=== PATIENT | male | born 1965 | race Caucasian/White ===

== ENCOUNTER 2017-04-27 03:42 | Inpatient (IN) | payer MEDICAID, OTHER ==
[~2017-04-27] VITALS: Ht 165.1 cm; Wt 88.8 kg
[2017-04-27] MEDS ORDERED: ADENOSINE 6 MG/2 ML INJ IV ONE ×6 (03:56→04:01)
[2017-04-27 04:23] LABS: Basophils # (auto) 0.1 uL; Eosinophils # (auto) 0.2 uL; Neutrophils % (auto) 54.9 % (37.0-80.0)
[2017-04-27 04:25] LABS: Basophils % (auto) 0.8 % (0.0-2.0); Eosinophils % (auto) 3.1 % (0.0-7.0); Hematocrit 49.5 % (41.0-53.0); Hemoglobin 17.2 g/dL (13.5-17.5); Mean Corpuscular Hemoglobin 34.6 pg (28.0-32.0); Mean Corpuscular Hgb Conc. 34.8 g/dL (32.0-36.0); Mean Corpuscular Volume 99.4 fL (80.0-100.0); Monocytes # (auto) 0.8 uL; Monocytes % (auto) 11.2 % (0.0-12.0); Neutrophils # (auto) 3.7 uL; Nucleated Red Blood Cells % 0.1 %; Platelet Count (auto) 218 10^3/uL (140-450); Red Blood Cells 4.98 10^6/uL (4.5-5.90); White Blood Cell 6.8 10^3/uL (4.4-10.8)
[2017-04-27 04:36] LABS: INR 0.93 (0.9-1.15); Partial Thromboplastin Time 26.6 sec (22.64-33.71); Prothrombin Time 10.1 sec (9.37-12.3)
[2017-04-27 04:37] LABS: Alanine Aminotransferase 131 U/L (16-61); Albumin 3.9 g/dL (3.4-5.0); Anion Gap 9 (5-15); Aspartate Aminotransferase 135 U/L (15-37); BUN/Creatinine Ratio 13.3; Blood Urea Nitrogen 10 mg/dL (7-18); Calcium 9.5 mg/dL (8.5-10.1); Carbon Dioxide 29 mmol/L (21-32); Chloride 102 mmol/L (98-107); GFR African American 142 mL/min; GFR Non-African American 118 mL/min; Glucose 119 mg/dL (74-106); Sodium 140 mmol/L (136-145)
[2017-04-27 04:41] LABS: Alkaline Phosphatase 98 U/L (45-117); Bilirubin, Total 0.8 mg/dL (0.2-1.0); Total Protein 8.7 g/dL (6.4-8.2)
[2017-04-27] MEDS ORDERED: SODIUM CHLORIDE 0.9% 1,000 ML IVB ONE (06:53)
[2017-04-27 07:00] LABS: Urine Bacteria NONE SEEN /hpf (None Seen); Urine Blood Negative /uL (Negative); Urine Hyaline Cast FEW /lpf (0 - 2); Urine Specific Gravity 1.008 (1.001-1.035); Urine WBC 1 /hpf (0 - 3)
[2017-04-27] MEDS ORDERED: DILTIAZEM HCL 120MG ER CAP PO ONE (07:00)
[2017-04-27 07:11] LABS: Amphetamine Screen, Urine NEGATIVE (NEGATIVE); Barbiturate Scree,Urine NEGATIVE (NEGATIVE); Benzodiazephine Screen, Urine NEGATIVE (NEGATIVE); Cannabinoid Screen, Urine NEGATIVE (NEGATIVE); Cocaine Screen, Urine NEGATIVE (NEGATIVE); Opiate Scree,Urine NEGATIVE (NEGATIVE); Phencyclidine Screen, Urine NEGATIVE (NEGATIVE)
[2017-04-27] MEDS ORDERED: METOPROLOL TARTRATE 1MG/1ML-5ML VIAL IV ONE (10:45)
[2017-04-27] MEDS ORDERED: LACTULOSE 20Gm/30ML SOLN PO PRN (11:00)
[2017-04-27] MEDS ORDERED: LORazepam 2MG/ML-1ML VIAL IV PRN (11:00)
[2017-04-27] MEDS ORDERED: chlordiazePOXIDE HCL 25 MG CAP PO PRN (11:00)
[2017-04-27] MEDS ORDERED: THIAMINE HCL 100 MG/ML 2ML VIAL IV ONE (11:00)
[2017-04-27] MEDS ORDERED: PROMETHAZINE HCL 25 MG/ML 1ML IV PRN (11:00)
[2017-04-27] MEDS ORDERED: MORPHINE SULFATE 4 MG/ML SYR/VIAL IV PRN ×3 (11:00)
[2017-04-27] MEDS ORDERED: NITROGLYCERIN 0.4 MG SL TAB SL PRN (11:00)
[2017-04-27] MEDS ORDERED: METOPROLOL TARTRATE 25 MG TAB PO ONE (11:15)
[2017-04-27] MEDS ORDERED: PERMETHRIN 5 % TOPICAL CREAM 60GM TOP ONE (11:15)
[2017-04-27] MEDS ORDERED: chlordiazePOXIDE HCL 25 MG CAP PO ONE (11:15)
[2017-04-27] MEDS: chlordiazePOXIDE HCL 5 MG CAP PO SCH ×2 (12:00→18:00)
[2017-04-27] MEDS: SODIUM CHLORIDE 0.9% 1,000 ML IV SCH (12:23)
[2017-04-27] MEDS: METOPROLOL TARTRATE 25 MG TAB PO SCH (22:29)
[2017-04-28] MEDS: SODIUM CHLORIDE 0.9% 1,000 ML IV SCH (00:07)
[2017-04-28] MEDS: chlordiazePOXIDE HCL 5 MG CAP PO SCH ×4 (00:28→18:22)
[2017-04-28 06:04] LABS: Alanine Aminotransferase 90 U/L (16-61); Albumin 3.2 g/dL (3.4-5.0); Anion Gap 7 (5-15); Aspartate Aminotransferase 74 U/L (15-37); BUN/Creatinine Ratio 21.2; Blood Urea Nitrogen 11 mg/dL (7-18); Calcium 8.5 mg/dL (8.5-10.1); Carbon Dioxide 28 mmol/L (21-32); Chloride 104 mmol/L (98-107); GFR African American 217 mL/min; GFR Non-African American 180 mL/min; Glucose 94 mg/dL (74-106); Potassium 3.6 mmol/L (3.5-5.1); Sodium 139 mmol/L (136-145)
[2017-04-28 06:08] LABS: Alkaline Phosphatase 71 U/L (45-117); Bilirubin, Total 0.8 mg/dL (0.2-1.0); Total Protein 7.4 g/dL (6.4-8.2)
[2017-04-28 09:19] LABS: Hepatitis B Surface Antibody Negative
[2017-04-28 09:30] LABS: Hepatitis B Surface Antigen Negative (Negative)
[2017-04-28] MEDS ORDERED: cloNIDine HCL 0.1 MG TAB PO ONE (09:30)
[2017-04-28 09:58] LABS: Hepatitis A Total Antibody Negative; Hepatitis B Core Total AB Negative
[2017-04-28] MEDS: THIAMINE HCL 100 MG/ML 2ML VIAL IV SCH (10:00)
[2017-04-28 10:20] LABS: Hepatitis C Antibody Positive (Negative)
[2017-04-28] MEDS: PANTOPRAZOLE 40 MG TAB PO SCH (10:22)
[2017-04-28] MEDS: METOPROLOL TARTRATE 25 MG TAB PO SCH ×4 (10:22→23:28)
[2017-04-28] MEDS: ENOXAPARIN SOD 40 MG/0.4 ML SYRINGE SC SCH (10:23)
[2017-04-29] MEDS: METOPROLOL TARTRATE 25 MG TAB PO SCH ×2 (00:01→00:02)
[2017-04-29] MEDS: chlordiazePOXIDE HCL 5 MG CAP PO SCH ×5 (00:07→23:47)
[2017-04-29 06:15] LABS: Albumin 3.2 g/dL (3.4-5.0); Magnesium 1.8 mg/dL (1.6-2.6)
[2017-04-29 06:18] LABS: Bilirubin, Total 0.8 mg/dL (0.2-1.0); Total Protein 7.5 g/dL (6.4-8.2)
[2017-04-29] MEDS ORDERED: PERMETHRIN 5 % TOPICAL CREAM 60GM TOP ONE ×2 (08:15→17:30)
[2017-04-29 08:56] LABS: Alcohol, Urine < 3.0 mg/dL (0-5); Amphetamine Screen, Urine NEGATIVE (NEGATIVE); Barbiturate Scree,Urine NEGATIVE (NEGATIVE); Benzodiazephine Screen, Urine POSITIVE (NEGATIVE); Cannabinoid Screen, Urine NEGATIVE (NEGATIVE); Cocaine Screen, Urine NEGATIVE (NEGATIVE); Opiate Scree,Urine NEGATIVE (NEGATIVE); Phencyclidine Screen, Urine NEGATIVE (NEGATIVE)
[2017-04-29] MEDS: PANTOPRAZOLE 40 MG TAB PO SCH (10:28)
[2017-04-29] MEDS: ENOXAPARIN SOD 40 MG/0.4 ML SYRINGE SC SCH (10:29)
[2017-04-29] MEDS: THIAMINE HCL 100 MG/ML 2ML VIAL IV SCH (10:57)
[2017-04-29 13:25] LABS: Bilirubin, Direct 0.2 mg/dL (0-0.2)
[2017-04-29 13:42] LABS: Cholesterol 136 mg/dL (< 200); HDL Cholesterol 76 mg/dL (40-59); LDL Cholesterol 61 mg/dL (< 100); Triglycerides 63 mg/dL (< 150)
[2017-04-29] MEDS: THIAMINE HCL 100 MG TAB PO SCH (14:20)
[2017-04-29 18:01] VITALS: BP 119/111
[2017-04-29 22:00] VITALS: BP 124/78
[2017-04-30 05:00] VITALS: BP 124/89
[2017-04-30] MEDS: chlordiazePOXIDE HCL 5 MG CAP PO SCH ×2 (05:54→12:43)
[2017-04-30 07:31] LABS: Albumin 3.1 g/dL (3.4-5.0); Bilirubin, Direct 0.4 mg/dL (0-0.2); Bilirubin, Total 0.8 mg/dL (0.2-1.0); Total Protein 7.2 g/dL (6.4-8.2)
[2017-04-30 08:00] VITALS: BP 122/80
[2017-04-30 08:39] VITALS: BP 122/80
[2017-04-30] MEDS: PANTOPRAZOLE 40 MG TAB PO SCH (09:48)
[2017-04-30] MEDS: THIAMINE HCL 100 MG TAB PO SCH (09:49)
[2017-04-30] MEDS: METOPROLOL TARTRATE 25 MG TAB PO SCH (09:50)
[2017-04-30] MEDS: ENOXAPARIN SOD 40 MG/0.4 ML SYRINGE SC SCH (09:50)
[2017-04-30 11:55] VITALS: BP 107/58
[2017-04-30] MEDS ORDERED: MET25T PO (13:59)
[2017-04-30 14:31] VITALS: BP 107/58
[2017-04-30 14:56] VITALS: BP 107/58
== END 2017-04-30 14:56 | disposition home or self-care (01) | DRG 201 ==
LOC: ER 03:42 → TELE 03:43 → TELE-CENTR 04-29 11:21
PROVIDERS: ADMIT Internal Medicine; ATTEND Internal Medicine
DX: I47.1 Supraventricular tachycardia (principal); I11.9 Hypertensive heart disease without heart failure; I48.91 Unspecified atrial fibrillation; F10.239 Alcohol dependence with withdrawal, unspecified; B86 Scabies; B19.20 Unspecified viral hepatitis C without hepatic coma; F17.210 Nicotine dependence, cigarettes, uncomplicated; F15.90 Other stimulant use, unspecified, uncomplicated; Z59.0 Homelessness; M10.9 Gout, unspecified
CPT/HCPCS: 36415; 71046; 76705; 80053; 80061; 80076; 80307; 81001; 82550; 83735; 83880; 84443; 84484; 85025; 85379; 85610; 85652; 85730; 86141; 86704; 86706; 86708; 86803; 87340; 93005; 93306; 94761; 96361; 96374; J0153

== ENCOUNTER 2021-03-23 07:20 | Emergency (ER) | payer SELFPAY ==
[~2021-03-23] VITALS: Ht 320 cm; Wt 81.6 kg
[2021-03-23 07:29] VITALS: BP 175/111
== END 2021-03-23 14:03 | disposition home or self-care (01) ==
LOC: ER 07:20
DX: R00.2 Palpitations (principal); F17.210 Nicotine dependence, cigarettes, uncomplicated; F12.10 Cannabis abuse, uncomplicated; I48.91 Unspecified atrial fibrillation
CPT/HCPCS: 93005

== ENCOUNTER 2024-02-10 06:58 | Inpatient (IN) | payer MEDICAID ==
[2024-02-10] VITALS (9 sets, daily range): BP systolic 129–165; BP diastolic 85–104; PULSE 93–103; RESP 18–20; TEMP 96.4–98.5; O2SAT 93–97
[~2024-02-10] VITALS: Ht 167.6 cm; Wt 87.0 kg
--- NOTE | 2024-02-10 07:21 | ED.PDOC ---
SOB-HPI HPI Comments A 58 year old male presents to the ED with a chief complaint of shortness of breath onset today. Patient states he was walking to the bathroom when he suddenly began experiencing shortness of breath. Upon ED arrival, O2 sat was 87% on room air, blood pressure was 190/130. Patient was seen in this ED about 1 week ago for similar symptoms. He has a past medical history of Afib, gout. Denies chest pain, headache, dizziness, nausea, vomiting, diarrhea. No other symptoms or modifying factors present at this time. Chief Complaint: Shortness of Breath Time Seen by MD: 07:06 Primary Care Provider: TARA Reviewed notes: Medications, Allergies Information Source: Patient Mode of Arrival: Ambulatory Severity: Moderate Timing: Hours Duration: Since onset PE Risk Factors: None History of: None Prehospital treatment: None Associated Signs and Symptoms: None Past Medical History PAST MEDICAL HISTORY: AFIB, Gout Surgical History: Denies all surgeries Family History Family History: Unknown Social History Smoker: Cigarettes, Less Than 1 Pack/Day Alcohol: Heavy Drugs: Methamphetamine Lives In: Home Constitutional: denies: chills, diaphoresis, fatigue, fever, malaise, sweats, weakness, others EENTM: denies: blurred vision, double vision, ear bleeding, ear discharge, ear drainage, ear pain, ear ringing, eye pain, eye redness, hearing loss, mouth pain, mouth swelling, nasal discharge, nose bleeding, nose congestion, nose pain, photophobia, tearing, throat pain, throat swelling, voice changes, others Respiratory: reports: shortness of breath; denies: cough, hemoptysis, orthopnea, SOB at rest, SOB with excertion, stridor, wheezing, others Cardiovascular: denies: chest pain, dizzy spells, diaphoresis, Dyspnea on exertion, edema, irregular heart beat, left arm pain, lightheadedness, p alpitations, PND, syncope, others Gastrointestinal: denies: abdomen distended, abdominal pain, blood streaked bowels, constipated, diarrhea, dysphagia, difficulty swallowing, hematemesis, melena, nausea, poor appetite, poor fluid intake, rectal bleeding, rectal pain, vomiting, others Genitourinary: denies: burning, dysuria, flank pain, frequency, hematuria, incontinence, penile discharge, penile sore, pain, testicle pain, testicle swelling, urgency, others Neurological: denies: dizziness, fainting, headache, left sided numbness, left sided weakness, numbness, paresthesia, pre-existing deficit, right sided numbness, right sided weakness, seizure, speech problems, tingling, tremors, weakness, others Musculoskeletal: denies: back pain, gout, joint pain, joint swelling, muscle pain, muscle stiffness, neck pain, others Integumetry: denies: bruises, change in color, change in hair/nails, dryness, laceration, lesions, lumps, rash, wounds, others Allergic/Immunocompromised: denies: Difficulty Healing, Frequent Infections, Hives, Itching, others Hematologic/Lymphatic: denies: anemia, blood clots, easy bleeding, easy b ruising, swollen glands, others Endocrine: denies: excessive hunger, excessive sweating, excessive thirst, excessive urination, flushing, intolerance to cold, intolerance to heat, unexplained weight gain, unexplained weight loss, others Psychiatric: denies: anxiety, bipolar disorder, depression, hopeless, panic disorder, schizophrenia, sleepless, suicidal, others All Other Systems: Reviewed and Negative Physical Exam General Appearance: Cachectic, Moderate Distress HEENT: Normal ENT Inspection, Pharynx Normal, TMs Normal Neck: Full Range of Motion, Non-Tender, Normal, Normal Inspection Respiratory: Chest Non-Tender, Respiratory Distress, Other (hypoxic ) Cardiovascular: No Edema, No JVD, No Murmur, No Gallop, Tachycardia Breast Exam: Deferred Gastrointestinal: No Organomegaly, Non Tender, No Pulsatile Mass, Normal Bowel Sounds, Soft Genitalia: Deferred Pelvic: Deferred Rectal: Deferred Extremities: No calf tenderness, Normal capillary refill, Normal inspection, Normal range of motion, Non-tender, No pedal edema Musculoskeletal : Apperance: Normal Neurologic: Alert, tubular splitting machine tender II-XII nml as Tested, No Motor Deficits, Normal Affect, Normal Mood, No Sensory Deficits Cerebellar Function: Normal Reflexes: Normal Skin: Dry, Normal Color, Warm Lymphatic: No Adenopathy Was a procedure done? Was a procedure done?: No Differential Dx Differential Diagnosis: Bronchitis, CHF, COPD, Myocardial infarction, Pneumonia, URI X-Ray, Labs, Meds, VS Vital Signs Date Time Temp Pulse Resp B/P (MAP) Pulse Ox O2 Delivery O2 Flow Rate FiO2 02/10/24 10:00 90 16 138/95 (109) 97 02/10/24 08:00 103 20 94 Nasal Cannula* 2 28 02/10/24 07:27 134 97 143/84 (103) 33 02/10/24 07:27 28 99 Simple Mask* 8 60 02/10/24 07:20 131 02/10/24 07:05 94.0 133 28 199/130 (153) 86 Lab Test 02/10/24 11:33 02/10/24 09:06 02/10/24 08:12 02/10/24 07:12 Range/Units Troponin I High Sensitivity 40 32 28 </=54 ng/L White Blood Count 6.3 4.4-10.8 10^3/uL Red Blood Count 4.33 L 4.5-5.90 10^6/uL Hemoglobin 14.5 13.5-17.5 g/dL Hematocrit 43.3 41.0-53.0 % Mean Corpuscular Volume 100.0 80.0-100.0 fL Mean Corpuscular Hemoglobin 33.5 H 28.0-32.0 pg Mean Corpuscular Hemoglobin Concent 33.5 32.0-36.0 g/dL Red Cell Distribution Width 14.2 11.8-14.3 % Platelet Count 297 140-450 10^3/uL Mean Platelet Volume 7.4 6.9-10.8 fL Neutrophils (%) (Auto) 54.2 37.0-80.0 % Lymphocytes (%) (Auto) 25.2 10.0-50.0 % Monocytes (%) (Auto) 9.7 0.0-12.0 % Eosinophils (%) (Auto) 9.0 H 0.0-7.0 % Basophils (%) (Auto) 1.9 0.0-2.0 % Neutrophils # (Auto) 3.4 1.6-8.6 10 ^3/uL Lymphocytes # (Auto) 1.6 0.4-5.4 10 ^3/uL Monocytes # (Auto) 0.6 0-1.3 10 ^3/uL Eosinophils # (Auto) 0.6 0-0.8 10 ^3/uL Basophils # (Auto) 0.1 0-0.2 10 ^3/uL Nucleated Red Blood Cells 0.1 % Sodium Level 146 H 136-145 mmol/L Potassium Level 4.2 3.5-5.1 mmol/L Chloride Level 110 H 98-107 mmol/L Carbon Dioxide Level 27 20-31 mmol/L Anion Gap 9 5-15 Blood Urea Nitrogen 18 9-23 mg/dL Creatinine 0.90 0.700-1.30 mg/dL Glomerular Filtration Rate Calc 100 >90 mL/min BUN/Creatinine Ratio 20.0 10.0-20.0 Serum Glucose 123 H 74-106 mg/dL Calcium Level 9.4 8.7-10.4 mg/dL B-Type Natriuretic Peptide 441.99 0-100 pg/mL POC Glucose 130 H 70-106 mg/dl Current Medications Medications (Trade) Dose Ordered Sig/Jana Route Start Time Stop Time Status Last Admin Albuterol (Ventolin Medneb) 5 mg ONCE ONCE NEB 02/10/24 07:30 02/10/24 07:31 DC 02/10/24 07:24 Ipratropium [place] (Atrovent Medneb) 0.5 mg ONCE ONCE NEB 02/10/24 07:30 02/10/24 07:31 DC 02/10/24 07:24 Azithromycin (Zithromax Tablet) 500 mg ONCE ONCE PO 02/10/24 11:15 02/10/24 11:16 DC 02/10/24 11:31 Vancomycin HCl 200 ml @ 200 mls/hr ONCE ONCE IV 02/10/24 11:15 02/10/24 12:14 DC 02/10/24 11:31 [place] [address] Ph: [phone] DIAGNOSTIC IMAGING Diagnostic Imaging Report : [id number] Signed PATIENT: JASPREET VILLAVICENCIO ACCT: [id number] UNIT: [id number] : 1965 LOC: ER ROOM / BED: / AGE / SEX: 58 / M ADM STATUS: REG ER SERVICE ORDERING PHYSICIAN: WADE MONAHAN MD PROCEDURE(s): CXRP - CHEST PORTABLE REASON: sob ORDER NUMBER(s): [id number], ACCESSION NUMBER(s): [id number] CLINICAL INFORMATION: 58 years old, Male; shortness of breath. TECHNIQUE: Single AP portable chest radiograph was obtained. COMPARISON: None FINDINGS: Lungs: Ill-defined bilateral airspace opacities and moderate bilateral interstitial opacities. Cardiac: [id number] cardiomegaly. Pulmonary vasculature: Prominence of the pulmonary vasculature. Mediastinum/desiree: Unremarkable. Bones: No acute osseous abnormality identified. Other: No other significant findings. IMPRESSION: Findings described above may be seen with pulmonary edema in the appropriate clinical setting. Infectious/inflammatory process is less likely, but could also have a similar appearance in the appropriate clinical setting. ATED BY: LOUIS RENEE DO DICTATED DATE/TIME: 02/10/24755 SIGNED BY: LOUIS RENEE DO SIGNED DATE/TIME: 02/10/24755 CC: Time of 1ST Reevaluation: 07:36 Reevaluation 1ST: Unchanged Patient Education/Counseling: Diagnosis, Treatment, Prognosis Family Education/Counseling: No Family Present Additional Information HI DATA VOL/COMPLEXITY:>2 External Notes- Ordered Test- LAB, PHA, XY, EKG, RT Reviewed Results: BMP, CBC, BNP, TROP, TROP, TROP Independent Hx- no Interpreted Results-(XY/EKG) Discuss Tx/Results- medical personnel, pt Departure 1 Departure Time of Disposition: 12:17 (Patient presented with acute shortness of breath concerning for acute on chronic COPD Exacerbation, Pneumonia, ACS, CHF, Pneumothorax. Less likely PE, Dissection. Patient does not appear septic at this time.Data: 1. I ordered and reviewed the result of at least 3 labs including a CBC, BMP, and Troponin. 2. I independently interpreted the following tests: Chest X-ray shows a pneumonia.Risk:This patient has a high risk of morbidity due to further diagnostic testing or treatment and may suffer from respiratory or cardiac etiology . Workup reveals a pneumonia, patient will be started on antibiotics, admitted for further workup and possible expert consultation.) Impression: Primary Impression: Pneumonia Qualified Codes: J18.9 - Pneumonia, unspecified organism Additional Impression: Shortness of breath Disposition: ADMITTED INPATIENT Admit to: Med Surg Condition: Serious e-Prescriptions Unable to Obtain Active Prescriptions or Reported Meds Critical Care Note Critical Care Time?: No Stability Stability form required: No Heart Score Heart Score: Heart Score Response (Comments) Value History N/A 0 EKG N/A 0 Age N/A 0 Risk Factors N/A 0 Troponin N/A 0 Total 0 I personally scribed for WADE MONAHAN MD ([email or web address]) on 02/10/24 at 07:21. Electronically submitted by Мария Serrano ([email or web address]). I personally scribed for WADE MONAHAN MD ([email or web address]) on 02/10/24 at 08:03. Electronically submitted by Мария Serrano ([email or web address]). I personally scribed for WADE MONAHAN MD ([email or web address]) on 02/10/24 at 10:10. Electronically submitted by Мария Serrano ([email or web address]). I personally scribed for WADE MONAHAN MD ([email or web address]) on 02/10/24 at 10:42. Electronically submitted by Мария Serrano ([email or web address]). I personally scribed for WADE MONAHAN MD ([email or web address]) on 02/10/24 at 10:44. El ectronically submitted by Мария Serrano ([email or web address]). WADE MONAHAN MD Feb 10, 2024 07:21
[2024-02-10] MEDS: IPRATROPIUM BROM 0.5 MG/2.5ML INH SOL NEB ONE (07:24)
[2024-02-10] MEDS: ALBUTEROL SULF 2.5 MG/0.5ML(0.5%) NEB SOLN NEB ONE (07:24)
[2024-02-10] MEDS: ALBUTEROL SULF 2.5 MG/0.5ML(0.5%) NEB SOLN ONE (07:26)
[2024-02-10] MEDS: IPRATROPIUM BROM 0.5 MG/2.5ML INH SOL ONE (07:26)
--- NOTE | 2024-02-10 07:59 | DVH ---
CLINICAL INFORMATION: 58 years old, Male; shortness of breath. TECHNIQUE: Single AP portable chest radiograph was obtained. COMPARISON: None FINDINGS: Lungs: Ill-defined bilateral airspace opacities and moderate bilateral interstitial opacities. Cardiac: [id number] cardiomegaly. Pulmonary vasculature: Prominence of the pulmonary vasculature. Mediastinum/desiree: Unremarkable. Bones: No acute osseous abnormality identified. Other: No other significant findings. IMPRESSION: Findings described above may be seen with pulmonary edema in the appropriate clinical setting. Infect ious/inflammatory process is less likely, but could also have a similar appearance in the appropriate clinical setting.
[2024-02-10 08:35] LABS: Basophils # (auto) 0.1 10 ^3/uL (0-0.2); Basophils % (auto) 1.9 % (0.0-2.0); Eosinophils # (auto) 0.6 10 ^3/uL (0-0.8); Hematocrit 43.3 % (41.0-53.0); Hemoglobin 14.5 g/dL (13.5-17.5); Lymphocytes # (auto) 1.6 10 ^3/uL (0.4-5.4); Lymphocytes % (auto) 25.2 % (10.0-50.0); Mean Corpuscular Hemoglobin 33.5 pg (28.0-32.0); Mean Corpuscular Hgb Conc. 33.5 g/dL (32.0-36.0); Monocytes # (auto) 0.6 10 ^3/uL (0-1.3); Monocytes % (auto) 9.7 % (0.0-12.0); Neutrophils # (auto) 3.4 10 ^3/uL (1.6-8.6); Neutrophils % (auto) 54.2 % (37.0-80.0); Nucleated Red Blood Cells % 0.1 %; Platelet Count (auto) 297 10^3/uL (140-450); Red Blood Cells 4.33 10^6/uL (4.5-5.90); Red Cell Distribution Width 14.2 % (11.8-14.3); White Blood Cell 6.3 10^3/uL (4.4-10.8)
[2024-02-10 08:45] LABS: Potassium 4.2 mmol/L (3.5-5.1)
[2024-02-10 08:46] LABS: Anion Gap 9 (5-15); Carbon Dioxide 27 mmol/L (20-31)
[2024-02-10 08:47] LABS: Calcium 9.4 mg/dL (8.7-10.4)
[2024-02-10 08:48] LABS: Chloride 110 mmol/L (98-107); Sodium 146 mmol/L (136-145)
[2024-02-10 08:52] LABS: Blood Urea Nitrogen 18 mg/dL (9-23)
[2024-02-10 09:07] LABS: Glucose 123 mg/dL (74-106)
[2024-02-10] MEDS: VANCOMYCIN 1GM/250ML KIT 200 ML IV ONE ×2 (11:31→23:19)
[2024-02-10] MEDS: AZITHROMYCIN 250 MG TAB PO ONE (11:31)
[2024-02-10] MEDS: CEFEPIME 2GM/50ML NS 50 ML IV ONE (12:26)
[2024-02-10] MEDS ORDERED: ALBUTEROL SULF 2.5 MG/0.5ML(0.5%) NEB SOLN NEB PRN (12:45)
[2024-02-10] MEDS ORDERED: TEMAZEPAM 15 MG CAP PO PRN (12:45)
[2024-02-10] MEDS ORDERED: IPRATROPIUM BROM 0.5 MG/2.5ML INH SOL NEB PRN (12:45)
[2024-02-10] MEDS ORDERED: DEXTROSE (50%) 50ML SYRG IV PRN (12:45)
[2024-02-10] MEDS ORDERED: LORazepam 0.5 MG TAB PO PRN (12:45)
[2024-02-10] MEDS ORDERED: MAALOX PLUS or MAALOX 30 ML PO PRN (12:45)
[2024-02-10] MEDS ORDERED: DOCUSATE SOD 100 MG CAP PO PRN (12:45)
[2024-02-10] MEDS ORDERED: ONDANSETRON HCL 4 MG/2 ML VIAL IV PRN (12:45)
[2024-02-10] MEDS ORDERED: VANCOMYCIN PER PHARMACY 0 MG IV SCH (12:45)
[2024-02-10] MEDS ORDERED: ACETAMINOPHEN 325 MG TAB PO PRN (12:45)
--- NOTE | 2024-02-10 12:52 | DVHHP2 ---
History of Present Illness Reason for Visit: shortness of breath History of Present Illness 58-year-old obese male with a past medical history of AFib and gout comes to the ED for us evaluation and shortness of breath patient has been having shortness of breath with severe hypoxia stated for the past week patient does have a hi story of hypertension as well and on initial evaluation in the ED patient's blood pressure was as high as the 190s over 130s and was desaturating to the low levels of the 80s requiring patient to be put on O2 saturation for supplemental support patient is a pack a day smoker but no other stated history at this point in time patient seems to have AFib with RVR will be admitted for further evaluation and continued management Cardiovascular: HTN, aortic stenosis Pulmonary: Pneumonia Review of Systems Constitutional: No: Fever, Chills, Sweats, Weakness, Malaise, Other Eyes: No: Pain, Vision change, Conjunctivae inflammation, Eyelid inflammation, Other, Redness ENT: No: Ear pain, Ear discharge, Nose pain, Nose discharge, Nose congestion, Mouth pain, Mouth swelling, Throat pain, Throat swelling, Other Respiratory: Cough, Shortness of breath; No: Dry, SOB with excertion, Wheezing, Hemoptysis, Pleuritic Pain, Sputum, Wheezing, Other Cardiovascular: Chest Pain, Palpitations; No: Orthopnea, Paroxysmal Noc. Dyspnea, Edema, Lt Headedness, Other Gastrointestinal: No: Nausea, Vomiting, Abdominal Pain, Diarrhea, Constipation, Melena, Hematochezia, Other Genitourinary: No Dysuria, No Frequency, No Incontinence, No Hematuria, No Retention, No Other Musculoskeletal: No: other, neck pain, shoulder pain, arm pain, back pain, hand pain, leg pain, foot pain Skin: No: Rash, Lesions, Jaundice, Bruising, Other Neurological: No: Weakness, Numbness, Incoordination, Change in speech, Confusion, Seizures, Other Allergies: Coded Allergies: NO KNOWN ALLERGIES (Unverified , 09/21/15) Medications Current Medications Medications Dose Ordered Sig/Jana Route Start Time Stop Time Status Last Admin Dose Admin Vancomycin HCl 0 ml @ 0 mls/hr UD IV 02/10/24 12:45 UNV Cefepime HCl 50 ml @ 12.5 mls/hr Q8HR IV 02/10/24 22:00 Albuterol 2.5 mg Q4HPRN PRN NEB 02/10/24 12:45 Ipratropium [place] 0.5 mg Q4HPRN PRN NEB 02/10/24 12:45 Furosemide 40 mg BIDD IV 02/10/24 18:00 Diagnostic Test (Pha) 1 strip IQ4HR 02/10/24 16:00 Insulin Human Regular IQ4HR SC 02/10/24 16:00 Dextrose 50 ml UD PRN IV 02/10/24 12:45 Sodium Chloride 1,000 ml @ 30 mls/hr Q24H IV 02/10/24 12:45 Lorazepam 0.5 mg Q6HP PRN PO 02/10/24 12:45 Al Hydrox/Mg Hydrox/Simethicone 30 ml Q6HP PRN PO 02/10/24 12:45 Docusate Sodium 100 mg BIDPRN PRN PO 02/10/24 12:45 Acetaminophen 650 mg Q6HP PRN PO 02/10/24 12:45 Temazepam 15 mg QHSP PRN PO 02/10/24 12:45 Acetaminophen/ Hydrocodone Bitart 1 tab Q4HP PRN PO 02/10/24 12:45 Ondansetron HCl 4 mg Q4HP PRN IV 02/10/24 12:45 Morphine Sulfate 2 mg Q4HPRN PRN IV 02/10/24 12:45 Methylprednisolone Sodium Succinate 40 mg BID IV 02/10/24 22:00 Exam Vital Signs Vital Signs Date Time Temp Pulse Resp B/P (MAP) Pulse Ox O2 Delivery O2 Flow Rate FiO2 02/10/24 10:00 90 16 138/95 (109) 97 02/10/24 08:00 Nasal Cannula* 2 28 02/10/24 07:05 94.0 General Appearance: Alert, Oriented X3 HEENT: Atraumatic, PERRLA Respiratory: Normal air movement Cardiovascular: Regular rate (Intermittent tachycardia), Normal S1, Normal S2 Abdominal: Normal bowel sounds, Soft, No tenderness Extremities: No clubbing, No cyanosis, No edema (Mild edema) Skin: No rashes, No breakdown Neuro: Normal gait, Normal speech, Strength at 5/5 X4 ext Psych/Mental Status: Mood NL Labs/Xrays Labs Test 02/10/24 11:33 02/10/24 08:12 02/10/24 07:12 Range/Units Troponin I High Sensitivity 40 </=54 ng/L White Blood Count 6.3 4.4-10.8 10^3/uL Red Blood Count 4.33 L 4.5-5.90 10^6/uL Hemoglobin 14.5 13.5-17.5 g/dL Hematocrit 43.3 41.0-53.0 % Mean Corpuscular Volume 100.0 80.0-100.0 fL Mean Corpuscular Hemoglobin 33.5 H 28.0-32.0 pg Mean Corpuscular Hemoglobin Concent 33.5 32.0-36.0 g/dL Red Cell Distribution Width 14.2 11.8-14.3 % Platelet Count 297 140-450 10^3/uL Mean Platelet Volume 7.4 6.9-10.8 fL Neutrophils (%) (Auto) 54.2 37.0-80.0 % Lymphocytes (%) (Auto) 25.2 10.0-50.0 % Monocytes (%) (Auto) 9.7 0.0-12.0 % Eosinophils (%) (Auto) 9.0 H 0.0-7.0 % Basophils (%) (Auto) 1.9 0.0-2.0 % Neutrophils # (Auto) 3.4 1.6-8.6 10 ^3/uL Lymphocytes # (Auto) 1.6 0.4-5.4 10 ^3/uL Monocytes # (Auto) 0.6 0-1.3 10 ^3/uL Eosinophils # (Auto) 0.6 0-0.8 10 ^3/uL Basophils # (Auto) 0.1 0-0.2 10 ^3/uL Nucleated Red Blood Cells 0.1 % Sodium Level 146 H 136-145 mmol/L Potassium Level 4.2 3.5-5.1 mmol/L Chloride Level 110 H 98-107 mmol/L Carbon Dioxide Level 27 20-31 mmol/L Anion Gap 9 5-15 Blood Urea Nitrogen 18 9-23 mg/dL Creatinine 0.90 0.700-1.30 mg/dL Glomerular Filtration Rate Calc 100 >90 mL/min BUN/Creatinine Ratio 20.0 10.0-20.0 Serum Glucose 123 H 74-106 mg/dL Calcium Level 9.4 8.7-10.4 mg/dL B-Type Natriuretic Peptide 441.99 0-100 pg/mL POC Glucose 130 H 70-106 mg/dl Assessment/Plan Assessment/Plan Admit to med surge Patient with electrolyte abnormalities hypernatremia elevated sodium Patient with a BNP elevated over 400 no stated history of CHF possible unknown history Recent echo completed patient has a history of severe aortic stenosis History of hypertension with hypertensive urgency noted Patient with no stated history of hyperglycemia however elevated glucoses noted Patient will be put on management for suspected AFib with RVR Suspected pneumonia We will treat with IV antibiotics IV hydration Hypertensive urgency P.r.n. breathing treatments B.i.d. diuretics for fluid maintenance imbalance P.r.n. steroids for suspected COPD exacerbation patient has never been diagnosed with COPD but does show acute signs of widening and flattening of diaphragm on x-ray Hyperglycemia no stated history of diabetes The sliding scale to be continued Plan discussed with: Patient My Orders Orders - KIKE ARTHUR MD Procedure Category Date Status Time Vancomycin Per PHA 02/10/24 Pending Pharmacy 12:45 Cefepime 1gm/ 50ml PHA 02/10/24 In Process (Maxipime 1gm/50ml) 22:00 Albuterol Medneb PHA 02/10/24 In Process (Ventolin Medneb) 12:45 Ipratropium Medneb PHA 02/10/24 In Process (Atrovent Medneb) 12:45 Med Neb Initial RT 02/10/24 Logged Treatment 12:31 Furosemide Injection PHA 02/10/24 In Process (Lasix Injection) 18:00 Glucose Blood PHA 02/10/24 In Process (Accu-Chek Comfort 16:00 Insulin R (Human) PHA 02/10/24 In Process (Insulin R) 16:00 Dextrose 50% Syringe PHA 02/10/24 In Process 12:45 Admit ADMIT 02/10/24 Transmitted 12:31 Code Status CODE 02/10/24 Transmitted 12:31 Vital Signs KERVIN 02/10/24 In Process 12:31 Review Orders With KERVIN 02/10/24 In Process 12:31 Consistent DIET 02/10/24 Transmitted Carb(Ccho)Diabetes Lunch Sodium Chloride 0.9% PHA 02/10/24 In Process 12:45 Lorazepam Tablet PHA 02/10/24 In Process (Ativan Tablet) 12:45 Alum & Mag PHA 02/10/24 In Process Hydrox-Simethicone 12:45 Docusate Sodium PHA 02/10/24 In Process Capsule (Colace 12:45 Acetaminophen Tablet PHA 02/10/24 In Process (Tylenol Tablet) 12:45 Temazepam (Restoril) PHA 02/10/24 In Process 12:45 Notify Md Of Changes KERVIN 02/10/24 In Process From Base 12:31 Advance Directive KERVIN 02/10/24 In Process 12:31 Basic Metabolic Panel LAB 02/11/24 Verified 04:00 Complete Blood Count LAB 02/11/24 Verified 04:00 Patient Condition ORDERS 02/10/24 Transmitted 12:31 Allergies KERVIN 02/10/24 In Process 12:31 Hydrocodone-Acet PHA 02/10/24 In Process 5/325mg Tab ([place] 12:45 Ondansetron Hcl PHA 02/10/24 In Process (Zofran) 12:45 Morphine Sulfate PHA 02/10/24 In Process Injection 12:45 Notify Md Of Changes KERVIN 02/10/24 In Process From Base 12:31 Frame Opener For [facility] 02/10/24 In Process 24 Hours 12:31 Oxygen By Nasal RT 02/10/24 Transmitted Cannula 12:31 Methylprednisolone PHA 02/10/24 In Process Sod Succ (Solu Medrol 22:00 Problem List: (1) Aortic stenosis (2) Amphetamine abuse (3) Palpitations (4) Shortness of breath (5) Pneumonia Date of Service: Feb 10, 2024 Billing Provider: KIKE ARTHUR MD Common Visit Codes: [id number] INP/OBS CARE (HIGH) KIKE ARTHUR MD Feb 10, 2024 12:52
[2024-02-10 13:45] LABS: Urine Bacteria None Seen /hpf (None Seen)
[2024-02-10] MEDS: SODIUM CHLORIDE 0.9% 1,000 ML IV SCH (13:45)
[2024-02-10 13:55] LABS: Urine Blood TRACE /uL (Negative); Urine Clarity Clear (Clear); Urine Color Light-Yellow (Yellow); Urine Protein, UAD 2+ (Negative); Urine Specific Gravity 1.016 (1.001-1.035); Urine Urobilinogen Normal (Negative); Urine WBC <1 /hpf (0 - 3)
[2024-02-10] MEDS: InsuLIN REG 1unit/0.01ml Soln (100units/ml) SC SCH (16:00)
[2024-02-10] MEDS: ACCU-CHEK COMFORT CURVE STRIP VI SCH (16:00)
[2024-02-10] MEDS: FUROSEMIDE 40 MG/4 ML VIAL IV SCH (18:39)
[2024-02-10] MEDS: MORPHINE SULFATE INJ 2 MG/ml SYRG IV PRN (19:09)
[2024-02-10] MEDS: CEFEPIME 1GM/ 50ML 50 ML IV SCH (21:24)
[2024-02-10] MEDS: methylPREDNISolone SOD SUCC 40 MG/ML VL IV SCH (21:24)
[2024-02-10] MEDS: VANCOMYCIN 1.25GM/250ML 250 ML IV SCH (23:00)
[2024-02-11] VITALS (9 sets, daily range): BP systolic 121–154; BP diastolic 77–115; PULSE 80–96; RESP 18–20; TEMP 97.6–98.7; O2SAT 92–100
[2024-02-11] MEDS: VANCOMYCIN 1GM/250ML KIT 50 ML IV ONE (00:56)
[2024-02-11 06:40] LABS: Basophils # (auto) 0 10 ^3/uL (0-0.2); Basophils % (auto) 0.9 % (0.0-2.0); Eosinophils # (auto) 0 10 ^3/uL (0-0.8); Eosinophils % (auto) 0.1 % (0.0-7.0); Hematocrit 46.1 % (41.0-53.0); Hemoglobin 15.7 g/dL (13.5-17.5); Lymphocytes # (auto) 0.7 10 ^3/uL (0.4-5.4); Lymphocytes % (auto) 14.9 % (10.0-50.0); Mean Corpuscular Hemoglobin 33.6 pg (28.0-32.0); Mean Corpuscular Volume 98.8 fL (80.0-100.0); Monocytes # (auto) 0.1 10 ^3/uL (0-1.3); Neutrophils % (auto) 82.1 % (37.0-80.0); Nucleated Red Blood Cells % 0.2 %; Platelet Count (auto) 330 10^3/uL (140-450); Red Blood Cells 4.66 10^6/uL (4.5-5.90); Red Cell Distribution Width 13.8 % (11.8-14.3); White Blood Cell 4.8 10^3/uL (4.4-10.8)
[2024-02-11 06:50] LABS: Chloride 104 mmol/L (98-107); Potassium 4.4 mmol/L (3.5-5.1); Sodium 138 mmol/L (136-145)
[2024-02-11 06:51] LABS: Anion Gap 8 (5-15); Calcium 9.8 mg/dL (8.7-10.4); Carbon Dioxide 26 mmol/L (20-31)
[2024-02-11 06:56] LABS: Blood Urea Nitrogen 17 mg/dL (9-23); Glucose 165 mg/dL (74-106)
--- NOTE | 2024-02-11 10:52 | ECG ---
[facility] Test Date: 2024-02-10 Test Time: 07:20:02 Pat Name: JASPREET VILLAVICENCIO Department: ED Room: 0287T A Gender: M It Business Analyst: SEBASTIAN : 1964-10-27 Requested By: WADE MONAHAN Order Number: [id number] Reading MD: Glynn Bazan Measurements Intervals Lily Rate: 131 P: 62 HI: 129 QRS: 52 QRSD: 103 T: 19 QT: 324 QTc: 479 Interpretive Statements Sinus tachycardia Paired ventricular premature complexes Minimal ST depression, diffuse leads Borderline prolonged QT interval Artifact in lead(s) II,III,aVF,V4,V5,V6 and baseline wander in lead(s) V3,V4,V5,V6 Electronically Signed On 02-15-2024 16:07:00 PST by Glynn Bazan Please click the below link to view image of tracing.
[2024-02-11] MEDS: HYDROcodone-ACET 5/325MG TAB PO PRN (13:20)
--- NOTE | 2024-02-11 14:15 | DVHPN2 ---
Changes from previous H/P or p: No Changes Eyes: No Pain, No Vision change, No Conjunctivae inflammation, No Eyelid inflammation, No Other, No Redness ENT: No Ear pain, No Ear discharge, No Nose pain, No Nose discharge, No Nose congestion, No Mouth pain, No Mouth swelling, No Throat pain, No Throat swelling, No Other Cardiovascular: Chest Pain, Palpitations; No Orthopnea, No Paroxysmal Noc. Dyspnea, No Edema, No Lt Headedness, No Other Respiratory: Cough; No Dry; Shortness of breath; No SOB with excertion, No Wheezing, No Hemoptysis, No Pleuritic Pain, No Sputum, No Other Gastrointestinal: No Nausea, No Vomiting, No Abdominal Pain, No Diarrhea, No Constipation, No Melena, No Hematochezia, No Other Genitourinary: No Dysuria, No Frequency, No Incontinence, No Hematuria, No Retention, No Other Musculoskeletal: No other, No neck pain, No shoulder pain, No arm pain, No back pain, No hand pain, No leg pain, No foot pain Skin: No Rash, No Lesions, No Jaundice, No Bruising, No Other Objective Vitals Vital Signs Date Time Temp Pulse Resp B/P (MAP) Pulse Ox O2 Delivery O2 Flow Rate FiO2 02/11/24 13:00 97.6 96 18 138/90 (106) 94 97.6 02/11/24 08:00 Room Air* 0 21 Intake/Output Intake and Output 02/11/24 07:00 Intake Total 150 ml Output Total 600 ml Balance -450 ml Intake Oral 100 ml IV Total 50 ml Output Urine Total 600 ml Medications Current Medications Medications Dose Ordered Sig/Jana Route Start Time Stop Time Status Last Admin Dose Admin Vancomycin HCl 0 ml @ 0 mls/hr UD IV 02/10/24 12:45 Cefepime HCl 50 ml @ 12.5 mls/hr Q8HR IV 02/10/24 22:00 02/11/24 05:36 12.5 MLS/HR Albuterol 2.5 mg Q4HPRN PRN NEB 02/10/24 12:45 Ipratropium [place] 0.5 mg Q4HPRN PRN NEB 02/10/24 12:45 Furosemide 40 mg BIDD IV 02/10/24 18:00 02/11/24 05:30 40 MG Diagnostic Test (Pha) 1 strip IQ4HR 02/10/24 16:00 02/11/24 12:12 1 STRIP Insulin Human Regular IQ4HR SC 02/10/24 16:00 Dextrose 50 ml UD PRN IV 02/10/24 12:45 Sodium Chloride 1,000 ml @ 30 mls/hr Q24H IV 02/10/24 12:45 02/11/24 13:22 30 MLS/HR Lorazepam 0.5 mg Q6HP PRN PO 02/10/24 12:45 Al Hydrox/Mg Hydrox/Simethicone 30 ml Q6HP PRN PO 02/10/24 12:45 Docusate Sodium 100 mg BIDPRN PRN PO 02/10/24 12:45 Acetaminophen 650 mg Q6HP PRN PO 02/10/24 12:45 Temazepam 15 mg QHSP PRN PO 02/10/24 12:45 Acetaminophen/ Hydrocodone Bitart 1 tab Q4HP PRN PO 02/10/24 12:45 02/11/24 13:20 1 TAB Ondansetron HCl 4 mg Q4HP PRN IV 02/10/24 12:45 Morphine Sulfate 2 mg Q4HPRN PRN IV 02/10/24 12:45 02/11/24 05:31 2 MG Methylprednisolone Sodium Succinate 40 mg BID IV 02/10/24 22:00 02/11/24 09:11 40 MG Vancomycin HCl 250 ml @ 200 mls/hr Q12H IV 02/10/24 23:00 02/11/24 13:20 200 MLS/HR Laboratory Results Laboratory Tests 02/11/24 06:21 Chemistry Test 02/11/24 06:21 Calcium Level 9.8 mg/dL (8.7-10.4) Urinalysis Test 02/10/24 13:44 Urine Color Light-yellow (Yellow) Urine Clarity Clear (Clear) Urine pH 6.0 (5.0-9.0) Urine Specific [place] 1.016 (1.001-1.035) Urine Protein 2+ (Negative) H Urine Ketones Negative (Negative) Urine Blood Trace /uL (Negative) H Urine Nitrite Negative (Negative) Urine Bilirubin Negative (Negative) Urine Urobilinogen Normal mg/dL (Negative) Urine Leukocyte Esterase Negative /uL (Negative) Urine RBC <1 /hpf (0 - 3) Urine WBC <1 /hpf (0 - 3) Urine Squamous Epithelial Cells None seen /hpf (<5) Urine Bacteria None seen /hpf (None Seen) Urine Glucose Normal mg/dL (Normal) Labs and/or images reviewed: Labs reviewed by me, Image(s) reviewed by me Assessment/Plan Assessment/Plan Acute hypoxic respiratory failure: Oxygen by nasal cannula Bilateral Community-acquired pneumonia: Cefepime vancomycin Hypertension History of atrial fibrillation Gout Aortic stenosis Chronic current smoker: Counseled Time spent 45 minutes Plan discussed with: Patient Date of Service: Feb 11, 2024 Billing Provider: WILFREDO KATZ MD Common Visit Codes: [id number] INP/OBS CARE(HIGH) WILFREDO KATZ MD Feb 11, 2024 14:15
[2024-02-12] VITALS (10 sets, daily range): BP systolic 109–129; BP diastolic 73–87; PULSE 78–120; RESP 17–20; TEMP 97.8–98.3; O2SAT 93–100
[2024-02-12] MEDS ORDERED: VANCOMYCIN HCL 1000 MG VL ONE (01:29)
--- NOTE | 2024-02-12 11:54 | DVHPN2 ---
Reviewed: Care Plan, H&P, Labs, Medications, Previous Orders, Radiology Changes from previous H/P or p: No Changes Eyes: No Pain, No Vision change, No Conjunctivae inflammation, No Eyelid inflammation, No Other, No Redness ENT: No Ear pain, No Ear discharge, No Nose pain, No Nose discharge, No Nose congestion, No Mouth pain, No Mouth swelling, No Throat pain, No Throat swelling, No Other Cardiovascular: Chest Pain, Palpitations; No Orthopnea, No Paroxysmal Noc. Dyspnea, No Edema, No Lt Headedness, No Other Respiratory: Cough; No Dry; Shortness of breath; No SOB with excertion, No Wheezing, No Hemoptysis, No Pleuritic Pain, No Sputum, No Other Gastrointestinal: No Nausea, No Vomiting, No Abdominal Pain, No Diarrhea, No Constipation, No Melena, No Hematochezia, No Other Genitourinary: No Dysuria, No Frequency, No Incontinence, No Hematuria, No Retention, No Other Musculoskeletal: No other, No neck pain, No shoulder pain, No arm pain, No back pain, No hand pain, No leg pain, No foot pain Skin: No Rash, No Lesions, No Jaundice, No Bruising, No Other Objective Vitals Vital Signs Date Time Temp Pulse Resp B/P (MAP) Pulse Ox O2 Delivery O2 Flow Rate FiO2 02/12/24 09:05 98.3 79 18 125/87 (100) 100 98.3 02/12/24 08:00 Room Air* 0 21 Intake/Output Intake and Output 02/12/24 07:00 Intake Total 2525 ml Balance 2525 ml Intake Oral 2275 ml IV Total 250 ml # Voids 15 Medications Current Medications Medications Dose Ordered Sig/Jana Route Start Time Stop Time Status Last Admin Dose Admin Vancomycin HCl 0 ml @ 0 mls/hr UD IV 02/10/24 12:45 Cefepime HCl 50 ml @ 12.5 mls/hr Q8HR IV 02/10/24 22:00 02/12/24 05:56 12.5 MLS/HR Albuterol 2.5 mg Q4HPRN PRN NEB 02/10/24 12:45 Ipratropium [place] 0.5 mg Q4HPRN PRN NEB 02/10/24 12:45 Furosemide 40 mg BIDD IV 02/10/24 18:00 02/12/24 05:56 40 MG Diagnostic Test (Pha) 1 strip IQ4HR 02/10/24 16:00 02/11/24 23:34 1 STRIP Insulin Human Regular IQ4HR SC 02/10/24 16:00 02/11/24 20:14 6 UNITS Dextrose 50 ml UD PRN IV 02/10/24 12:45 Sodium Chloride 1,000 ml @ 30 mls/hr Q24H IV 02/10/24 12:45 02/11/24 13:22 30 MLS/HR Lorazepam 0.5 mg Q6HP PRN PO 02/10/24 12:45 Al Hydrox/Mg Hydrox/Simethicone 30 ml Q6HP PRN PO 02/10/24 12:45 Docusate Sodium 100 mg BIDPRN PRN PO 02/10/24 12:45 Acetaminophen 650 mg Q6HP PRN PO 02/10/24 12:45 Temazepam 15 mg QHSP PRN PO 02/10/24 12:45 Acetaminophen/ Hydrocodone Bitart 1 tab Q4HP PRN PO 02/10/24 12:45 02/12/24 08:02 1 TAB Ondansetron HCl 4 mg Q4HP PRN IV 02/10/24 12:45 Morphine Sulfate 2 mg Q4HPRN PRN IV 02/10/24 12:45 02/11/24 05:31 2 MG Methylprednisolone Sodium Succinate 40 mg BID IV 02/10/24 22:00 02/12/24 09:49 40 MG Vancomycin HCl 250 ml @ 200 mls/hr Q12H IV 02/10/24 23:00 02/12/24 02:02 200 MLS/HR Laboratory Results Laboratory Tests 02/11/24 06:21 Urinalysis Test 02/10/24 13:44 Urine Color Light-yellow (Yellow) Urine Clarity Clear (Clear) Urine pH 6.0 (5.0-9.0) Urine Specific [place] 1.016 (1.001-1.035) Urine Protein 2+ (Negative) H Urine Ketones Negative (Negative) Urine Blood Trace /uL (Negative) H Urine Nitrite Negative (Negative) Urine Bilirubin Negative (Negative) Urine Urobilinogen Normal mg/dL (Negative) Urine Leukocyte Esterase Negative /uL (Negative) Urine RBC <1 /hpf (0 - 3) Urine WBC <1 /hpf (0 - 3) Urine Squamous Epithelial Cells None seen /hpf (<5) Urine Bacteria None seen /hpf (None Seen) Urine Glucose Normal mg/dL (Normal) Labs and/or images reviewed: Labs reviewed by me, Image(s) reviewed by me Assessment/Plan Assessment/Plan Acute hypoxic respiratory failure: Oxygen by nasal cannula Bilateral Community-acquired pneumonia: DC cefepime and vancomycin, start Rocephin and azithromycin Hypertension History of atrial fibrillation Gout Aortic stenosis Chronic current smoker: Counseled Time spent 45 minutes Plan discussed with: Patient Date of Service: Feb 12, 2024 Billing Provider: WILFREDO KATZ MD Common Visit Codes: [id number] INP/OBS CARE(HIGH) WILFREDO KATZ MD Feb 12, 2024 11:54
[2024-02-12] MEDS: cefTRIAXone 1GM/50ML D5W 50 ML IV ONE (13:37)
[2024-02-12] MEDS: AZITHROMYCIN 500MG/ 250ML 250 ML IV ONE (14:49)
[2024-02-13] VITALS (7 sets, daily range): BP systolic 121–126; BP diastolic 74–87; PULSE 63–91; RESP 17–20; TEMP 97.5–98.1; O2SAT 91–97
[2024-02-13] MEDS: cefTRIAXone 1GM/50ML D5W 50 ML IV SCH (08:13)
[2024-02-13] MEDS: AZITHROMYCIN 500MG/ 250ML 250 ML IV SCH (09:47)
--- NOTE | 2024-02-13 12:46 | DVHPN2 ---
Reviewed: Care Plan, H&P, Labs, Medications, Previous Orders, Radiology Changes from previous H/P or p: No Changes Eyes: No Pain, No Vision change, No Conjunctivae inflammation, No Eyelid inflammation, No Other, No Redness ENT: No Ear pain, No Ear discharge, No Nose pain, No Nose discharge, No Nose congestion, No Mouth pain, No Mouth swelling, No Throat pain, No Throat swelling, No Other Cardiovascular: Chest Pain, Palpitations; No Orthopnea, No Paroxysmal Noc. Dyspnea, No Edema, No Lt Headedness, No Other Respiratory: Cough; No Dry; Shortness of breath; No SOB with excertion, No Wheezing, No Hemoptysis, No Pleuritic Pain, No Sputum, No Other Gastrointestinal: No Nausea, No Vomiting, No Abdominal Pain, No Diarrhea, No Constipation, No Melena, No Hematochezia, No Other Genitourinary: No Dysuria, No Frequency, No Incontinence, No Hematuria, No Retention, No Other Musculoskeletal: No other, No neck pain, No shoulder pain, No arm pain, No back pain, No hand pain, No leg pain, No foot pain Skin: No Rash, No Lesions, No Jaundice, No Bruising, No Other Objective Vitals Vital Signs Date Time Temp Pulse Resp B/P (MAP) Pulse Ox O2 Delivery O2 Flow Rate FiO2 02/13/24 09:33 97.8 85 17 126/83 (97) 95 97.8 02/13/24 08:00 Room Air* 0 21 Intake/Output Intake and Output 02/13/24 07:00 Intake Total 1550 ml Output Total 1000 ml Balance 550 ml Intake Oral 1500 ml IV Total 50 ml Output Urine Total 1000 ml # Voids 3 Medications Current Medications Medications Dose Ordered Sig/Jana Route Start Time Stop Time Status Last Admin Dose Admin Albuterol 2.5 mg Q4HPRN PRN NEB 02/10/24 12:45 Ipratropium [place] 0.5 mg Q4HPRN PRN NEB 02/10/24 12:45 Furosemide 40 mg BIDD IV 02/10/24 18:00 02/12/24 18:20 40 MG Diagnostic Test (Pha) 1 strip IQ4HR 02/10/24 16:00 02/13/24 08:08 1 STRIP Insulin Human Regular IQ4HR SC 02/10/24 16:00 02/11/24 20:14 6 UNITS Dextrose 50 ml UD PRN IV 02/10/24 12:45 Sodium Chloride 1,000 ml @ 30 mls/hr Q24H IV 02/10/24 12:45 02/12/24 13:25 30 MLS/HR Lorazepam 0.5 mg Q6HP PRN PO 02/10/24 12:45 Al Hydrox/Mg Hydrox/Simethicone 30 ml Q6HP PRN PO 02/10/24 12:45 Docusate Sodium 100 mg BIDPRN PRN PO 02/10/24 12:45 Acetaminophen 650 mg Q6HP PRN PO 02/10/24 12:45 Temazepam 15 mg QHSP PRN PO 02/10/24 12:45 Acetaminophen/ Hydrocodone Bitart 1 tab Q4HP PRN PO 02/10/24 12:45 02/13/24 08:13 1 TAB Ondansetron HCl 4 mg Q4HP PRN IV 02/10/24 12:45 Morphine Sulfate 2 mg Q4HPRN PRN IV 02/10/24 12:45 02/11/24 05:31 2 MG Methylprednisolone Sodium Succinate 40 mg BID IV 02/10/24 22:00 02/13/24 09:46 40 MG Ceftriaxone Sodium 50 ml @ 100 mls/hr DAILY@09 IV 02/13/24 09:00 02/13/24 08:13 100 MLS/HR Azithromycin 250 ml @ 125 mls/hr DAILY IV 02/13/24 10:00 02/13/24 09:47 125 MLS/HR Laboratory Results Laboratory Tests 02/11/24 06:21 02/13/24 03:25 Urinalysis Test 02/10/24 13:44 Urine Color Light-yellow (Yellow) Urine Clarity Clear (Clear) Urine pH 6.0 (5.0-9.0) Urine Specific [place] 1.016 (1.001-1.035) Urine Protein 2+ (Negative) H Urine Ketones Negative (Negative) Urine Blood Trace /uL (Negative) H Urine Nitrite Negative (Negative) Urine Bilirubin Negative (Negative) Urine Urobilinogen Normal mg/dL (Negative) Urine Leukocyte Esterase Negative /uL (Negative) Urine RBC <1 /hpf (0 - 3) Urine WBC <1 /hpf (0 - 3) Urine Squamous Epithelial Cells None seen /hpf (<5) Urine Bacteria None seen /hpf (None Seen) Urine Glucose Normal mg/dL (Normal) Labs and/or images reviewed: Labs reviewed by me, Image(s) reviewed by me Assessment/Plan Assessment/Plan Acute hypoxic respiratory failure: Oxygen by nasal cannula Bilateral Community-acquired pneumonia: DC cefepime and vancomycin, start Rocephin and azithromycin Hypertension History of atrial fibrillation Gout Aortic stenosis Chronic current smoker: Counseled Time spent 45 minutes Plan discussed with: Patient Date of Service: Feb 13, 2024 Billing Provider: WILFREDO KATZ MD Common Visit Codes: [id number] INP/OBS CARE(HIGH) WILFREDO KATZ MD Feb 13, 2024 12:46
--- NOTE | 2024-02-13 12:51 | DVHDS2 ---
Discharge Summary Date of Admission Feb 10, 2024 at 12:31 Date of Discharge: Feb 13, 2024 Admitting Diagnosis Shortness of breaths Wounds: None Labs/Diagnostic Data: Laboratory Results Test 02/13/24 08:03 02/13/24 03:25 02/11/24 06:21 02/10/24 13:44 POC Glucose 177 mg/dl (70-106) Creatinine 0.87 mg/dL (0.700-1.30) Glomerular Filtration Rate Calc 101 mL/min (>90) Vancomycin Level Trough 6.2 ug/mL (5-10) White Blood Count 4.8 10^3/uL (4.4-10.8) Red Blood Count 4.66 10^6/uL (4.5-5.90) Hemoglobin 15.7 g/dL (13.5-17.5) Hematocrit 46.1 % (41.0-53.0) Mean Corpuscular Volume 98.8 fL (80.0-100.0) Mean Corpuscular Hemoglobin 33.6 pg (28.0-32.0) Mean Corpuscular Hemoglobin Concent 34.0 g/dL (32.0-36.0) Red Cell Distribution Width 13.8 % (11.8-14.3) Platelet Count 330 10^3/uL (140-450) Mean Platelet Volume 7.5 fL (6.9-10.8) Neutrophils (%) (Auto) 82.1 % (37.0-80.0) Lymphocytes (%) (Auto) 14.9 % (10.0-50.0) Monocytes (%) (Auto) 2.0 % (0.0-12.0) Eosinophils (%) (Auto) 0.1 % (0.0-7.0) Basophils (%) (Auto) 0.9 % (0.0-2.0) Neutrophils # (Auto) 4.0 10 ^3/uL (1.6-8.6) Lymphocytes # (Auto) 0.7 10 ^3/uL (0.4-5.4) Monocytes # (Auto) 0.1 10 ^3/uL (0-1.3) Eosinophils # (Auto) 0 10 ^3/uL (0-0.8) Basophils # (Auto) 0 10 ^3/uL (0-0.2) Nucleated Red Blood Cells 0.2 % Sodium Level 138 mmol/L (136-145) Potassium Level 4.4 mmol/L (3.5-5.1) Chloride Level 104 mmol/L (98-107) Carbon Dioxide Level 26 mmol/L (20-31) Anion Gap 8 (5-15) Blood Urea Nitrogen 17 mg/dL (9-23) BUN/Creatinine Ratio 23.0 (10.0-20.0) Serum Glucose 165 mg/dL (74-106) Calcium Level 9.8 mg/dL (8.7-10.4) Urine Color Light-yellow (Yellow) Urine Clarity Clear (Clear) Urine pH 6.0 (5.0-9.0) Urine Specific [place] 1.016 (1.001-1.035) Urine Protein 2+ (Negative) Urine Ketones Negative (Negative) Urine Blood Trace /uL (Negative) Urine Nitrite Negative (Negative) Urine Bilirubin Negative (Negative) Urine Urobilinogen Normal mg/dL (Negative) Urine Leukocyte Esterase Negative /uL (Negative) Urine RBC <1 /hpf (0 - 3) Urine WBC <1 /hpf (0 - 3) Urine Squamous Epithelial Cells None seen /hpf (<5) Urine Bacteria None seen /hpf (None Seen) Urine Glucose Normal mg/dL (Normal) Test 02/10/24 11:33 02/10/24 08:12 Troponin I High Sensitivity 40 ng/L (</=54) B-Type Natriuretic Peptide 441.99 pg/mL (0-100) Other Laboratory Tests 02/13/24 03:25 02/11/24 06:21 Brief Hx & Hospital Course: 59-year-old male with hypertension AFib gout aortic stenosis chronic current smoker came in for shortness of breaths found to have community-acquired pneumonia treated with the Rocephin and azithromycin feels better on room air at the time of discharge with stable vital signs and afebrile discharged home on azithromycin Ventolin MDFrederick and Medrol Dosepak. He will follow up with his primary Dr he was advised to quit smoking Consults/Reason for consult None Operations or Procedures None Condition at Discharge: Fair Final Diagnosis/Problems List Acute hypoxic respiratory failure: Oxygen by nasal cannula Bilateral Community-acquired pneumonia: DC cefepime and vancomycin, start Rocephin and azithromycin Hypertension History of atrial fibrillation Gout Aortic stenosis Chronic current smoker: Counseled Discharge Disposition: Home Discharge Instruct/Medications Diet: Cardiac 2g Na,low cholest Activity: Light activity Follow Up/Referral: Follow up with the primary Dr in one wee Medications: Azithromycin 500 mg p.o. daily 10. Medrol Becky MANSFIELD Transmitted to [facility] (Time Taken For discharge summary 39 minutes) Discharge Statement: "Patient was advised to return to the ER or call 911 if any headaches, dizziness, shortness of breath, chest pain, abdominal pain, bleeding, fevers, or worsening of medical condition. Patient was counseled about treatment plan, medications, possible side effects, patientverbalized understanding. All questions were answered to the best of my ability. This discharge took greater then 30 minutes in planning, reviewing documentation, counseling the patient, and discussing with other team members." ASSESSMENT ASSESSMENT Hospital Course Improved Assessment Acute hypoxic respiratory failure: Oxygen by nasal cannula Bilateral Community-acquired pneumonia: DC cefepime and vancomycin, start Rocephin and azithromycin Hypertension History of atrial fibrillation Gout Aortic stenosis Chronic current smoker: Counseled Date of Service: Feb 13, 2024 Billing Provider: WILFREDO KATZ MD Common Visit Codes: [id number] DISCH DAY >30min WILFREDO KATZ MD Feb 13, 2024 12:51
== END 2024-02-13 15:01 | disposition home or self-care (01) | DRG 137 ==
LOC: ER 06:58 → TELE 12:31 → EDBD 12:31 → TELE-WESTW 17:57
PROVIDERS: ADMIT Hospitalist; ATTEND Family Medicine
DX: J15.69 Pneumonia due to other Gram-negative bacteria (principal); J96.01 Acute respiratory failure with hypoxia; J15.9 Unspecified bacterial pneumonia; I48.91 Unspecified atrial fibrillation; I16.0 Hypertensive urgency; M10.9 Gout, unspecified; F17.210 Nicotine dependence, cigarettes, uncomplicated; I10 Essential (primary) hypertension; I35.0 Nonrheumatic aortic (valve) stenosis; Z79.899 Other long term (current) drug therapy
CPT/HCPCS: 36415; 71045; 80048; 80202; 81001; 82565; 82962; 83880; 84484; 85025; 93005; 94640; 96365; 99291; G0378; J0692; J1815

== ENCOUNTER 2024-02-21 06:03 | Inpatient (IN) | payer MEDICAID ==
[~2024-02-21] VITALS: Ht 167.6 cm; Wt 81.8 kg
[~2024-02-21 06:03] MED LIST: FURO1TAB33 PO
--- NOTE | 2024-02-21 06:36 | ED.PDOC ---
History of Present Illness HPI Comments 59 y/o M, with a Hx of cardiomegaly, paroxysmal supraventricular tachycardia, PNA, gout, and polysubstance abuse, presents with c/o shortness of breath, today. Patient endorses on being discharged from recent hospital admission at [facility] for PNA on 02/13/24 and having sudden onset of difficulty breathing, this m orning, at around 0430. Patient admits to picking up and taking his prescription medication from last admission and this being the third time he has had issues breathing within this year. Patient endorses no recent stressors, strenuous activities, sick contact, travel, substance use/exposure, or any additional relevant or pertinent Hx. Patient denies having any chest pain, palpitations, cough, nausea, vomiting, fever, chills, or other associated symptoms or modifiers at this time. Chief Complaint: Shortness of Breath Time Seen by MD: 06:10 Primary Care Provider: DENIES Reviewed Notes: Nurses Notes, Medications, Allergies Allergies: Coded Allergies: NO KNOWN ALLERGIES (Unverified , 09/21/15) Home Meds Active Scripts Furosemide (Lasix) 20 Mg Tb, 1 TAB PO DAILYP PRN for 30 Days, #30 TAB 0 Refills Prov:JAKE SAUCEDO MD 02/07/24 Information Source: Patient Mode of Arrival: Wheelchair Severity: Moderate Timing: Hours Duration: Since onset Prehospital treatment: None Past Medical History PAST MEDICAL HISTORY: Gout Past Medical History (Other): cardiomegaly, paroxysmal supraventricular tachycardia, PNA, Surgical History: Denies all surgeries Family History Family History: Unknown Social History Smoker: Cigarettes, Less Than 1 Pack/Day Alcohol: Heavy Drugs: Methamphetamine Lives In: Home Respiratory: reports: shortness of breath All Other Systems: Reviewed and Negative (negative unless otherwise stated in the HPI) Physical Exam General Appearance: Moderate Distress HEENT: Normal ENT Inspection, Pharynx Normal, TMs Normal Neck: Full Range of Motion, Non-Tender, Normal, Normal Inspection Respiratory: Other (Coarse breath sounds) Cardiovascular: No Edema, No JVD, No Murmur, No Gallop, Normal Peripheral Pulses, Regular Rate/Rhythm Breast Exam: Deferred Gastrointestinal: No Organomegaly, Non Tender, No Pulsatile Mass, Normal Bowel Sounds, Soft Genitalia: Deferred Pelvic: Deferred Rectal: Deferred Extremities: Pedal edema Musculoskeletal : Apperance: Normal Neurologic: Alert Cerebellar Function: NOT DONE Reflexes: NOT DONE Skin: Normal Color Peripheral Pulses: 3+ Radial (R), 3+ Radial (L) Lymphatic: No Adenopathy Was a procedure done? Was a procedure done?: No EKG EKG : Pulse Rate (adult): 103 [place]: Normal Cardiac Rhythm: ST, PVC's, Paced Block: None Hypertrophy: None ST: Normal Differential Dx Considerations may include: PNA, bronchitis, Covid19, URI, viral syndrome X-Ray, Labs, Meds, VS Vital Signs Date Time Temp Pulse Resp B/P (MAP) Pulse Ox O2 Delivery O2 Flow Rate FiO2 02/21/24 08:27 134/94 02/21/24 08:12 95 16 94 Nasal Cannula* 6 44 02/21/24 08:11 97.7 95 16 134/94 (107) 94 97.7 02/21/24 06:36 103 02/21/24 06:12 103 02/21/24 06:09 22 83 Room Air* 0 21 02/21/24 06:04 98.9 134 22 158/98 (118) 83 Lab Test 02/21/24 06:25 Range/Units White Blood Count 7.0 4.4-10.8 10^3/uL Red Blood Count 4.15 L 4.5-5.90 10^6/uL Hemoglobin 14.0 13.5-17.5 g/dL Hematocrit 41.3 41.0-53.0 % Mean Corpuscular Volume 99.6 80.0-100.0 fL Mean Corpuscular Hemoglobin 33.9 H 28.0-32.0 pg Mean Corpuscular Hemoglobin Concent 34.0 32.0-36.0 g/dL Red Cell Distribution Width 13.6 11.8-14.3 % Platelet Count 271 140-450 10^3/uL Mean Platelet Volume 7.7 6.9-10.8 fL Neutrophils (%) (Auto) 64.7 37.0-80.0 % Lymphocytes (%) (Auto) 19.9 10.0-50.0 % Monocytes (%) (Auto) 8.5 0.0-12.0 % Eosinophils (%) (Auto) 5.9 0.0-7.0 % Basophils (%) (Auto) 1.0 0.0-2.0 % Neutrophils # (Auto) 4.5 1.6-8.6 10 ^3/uL Lymphocytes # (Auto) 1.4 0.4-5.4 10 ^3/uL Monocytes # (Auto) 0.6 0-1.3 10 ^3/uL Eosinophils # (Auto) 0.4 0-0.8 10 ^3/uL Basophils # (Auto) 0.1 0-0.2 10 ^3/uL Nucleated Red Blood Cells 0.2 % Sodium Level 146 H 136-145 mmol/L Potassium Level 4.5 3.5-5.1 mmol/L Chloride Level 111 H 98-107 mmol/L Carbon Dioxide Level 30 20-31 mmol/L Anion Gap 5 5-15 Blood Urea Nitrogen 20 9-23 mg/dL Creatinine 0.78 0.700-1.30 mg/dL Glomerular Filtration Rate Calc 104 >90 mL/min BUN/Creatinine Ratio 25.6 H 10.0-20.0 Serum Glucose 117 H 74-106 mg/dL Calcium Level 9.3 8.7-10.4 mg/dL Troponin I High Sensitivity 41 </=54 ng/L B-Type Natriuretic Peptide 574.34 0-100 pg/mL Current Medications Medications (Trade) Dose Ordered Sig/Jana Route Start Time Stop Time Status Last Admin Furosemide (Lasix Injection) 40 mg ONCE ONCE IV 02/21/24 07:00 02/21/24 07:01 DC 02/21/24 08:27 Patient alert. Complaining of shortness a breath. Tachycardia. Blood pressure elevated. Had to place on oxygen. Ankle edema. CHF. Was given Lasix. EKG reviewed does not show any acute changes. Reviewed his previous visit. Continues to smoke cigarettes. Counseled patient on effects of smoking cigarettes for 15 minutes. Explained to the patient. Continue cardiac monitoring. CXR:[facility] [id number] [facility] [address] Ph: [phone] DIAGNOSTIC IMAGING Diagnostic Imaging Report : [id number] Signed PATIENT: JASPREET VILLAVICENCIO ACCT: [id number] UNIT: [id number] : 10/27/1964 LOC: ER ROOM / BED: / AGE / SEX: 59 / M ADM STATUS: REG ER SERVICE 7 ORDERING PHYSICIAN: ABDIEL WALLS MD PROCEDURE(s): CXRP - CHEST PORTABLE REASON: sob ORDER NUMBER(s): [id number], ACCESSION NUMBER(s): [id number] CLINICAL INFORMATION: 59 years old, Male; shortness of breath. TECHNIQUE: Single AP portable chest radiograph was obtained. COMPARISON: XY CHEST PORTABLE on DOS: 02/10/24 FINDINGS: Lungs: Bilateral interstitial opacities and ill-defined airspace opacities, similar in appearance compared to the prior exam. No pneumothorax. Cardiac: Unchanged cardiomegaly. Pulmonary vasculature: Prominence of the pulmonary vasculature. Mediastinum/desiree: Unremarkable. Bones: No acute osseous abnormality identified. Other: No other significant findings. IMPRESSION: Bilateral airspace opacities and interstitial opacities, may be seen with pulmonary edema in the appropriate clinical setting. ATED BY: LOUIS RENEE DO DICTATED DATE/TIME: 02/21/24725 SIGNED BY: LOUIS RENEE DO SIGNED DATE/TIME: 02/21/24725 CC: Time of 1ST Reevaluation: 06:30 Reevaluation 1ST: Unchanged Patient Education/Counseling: Diagnosis, Treatment Family Education/Counseling: No Family Present Departure 1 Departure Time of Disposition: 06:55 Impression: Primary Impression: Acute respiratory failure Qualified Codes: J96.01 - Acute respiratory failure with hypoxia Additional Impressions: Hypertension Qualified Codes: I10 - Essential (primary) hypertension Systolic and diastolic CHF, acute Disposition: 09 ADMITTED INPATIENT Admit to: Med Surg Condition: Guarded Critical Care Note Critical Care Time?: Yes (45 min-critical care time only) Stability Stability form required: No Heart Score Heart Score: Heart Score Response (Comments) Value History Slightly Suspicious 0 EKG Normal 0 Age 45-64 1 Risk Factors 1 or 2 risk factors 1 Troponin Normal limit 0 Total 2 I personally scribed for ABDIEL WALLS MD ([email or web address]) on 02/21/24 at 06:36. Electronically submitted by Everett Prado ([email or web address]). I personally scribed for ABDIEL WALLS MD ([email or web address]) on 02/21/24 at 08:53. Electronically submitted by Everett Prado ([email or web address]). I personally scribed for ABDIEL WALLS MD ([email or web address]) on 02/21/24 at 08:54. Electronically submitted by Everett Prado ([email or web address]). ABDIEL WALLS MD Feb 21, 2024 06:36
[2024-02-21 07:16] LABS: Basophils # (auto) 0.1 10 ^3/uL (0-0.2); Eosinophils # (auto) 0.4 10 ^3/uL (0-0.8); Eosinophils % (auto) 5.9 % (0.0-7.0); Hematocrit 41.3 % (41.0-53.0); Lymphocytes # (auto) 1.4 10 ^3/uL (0.4-5.4); Lymphocytes % (auto) 19.9 % (10.0-50.0); Mean Corpuscular Hemoglobin 33.9 pg (28.0-32.0); Mean Corpuscular Volume 99.6 fL (80.0-100.0); Monocytes # (auto) 0.6 10 ^3/uL (0-1.3); Monocytes % (auto) 8.5 % (0.0-12.0); Neutrophils # (auto) 4.5 10 ^3/uL (1.6-8.6); Neutrophils % (auto) 64.7 % (37.0-80.0); Nucleated Red Blood Cells % 0.2 %; Platelet Count (auto) 271 10^3/uL (140-450); Red Blood Cells 4.15 10^6/uL (4.5-5.90); Red Cell Distribution Width 13.6 % (11.8-14.3)
--- NOTE | 2024-02-21 07:29 | DVH ---
CLINICAL INFORMATION: 59 years old, Male; shortness of breath. TECHNIQUE: Single AP portable chest radiograph was obtained. COMPARISON: XY CHEST PORTABLE on DOS: 02/10/24 FINDINGS: Lungs: Bilateral interstitial opacities and ill-defined airspace opacities, similar in appearance com pared to the prior exam. No pneumothorax. Cardiac: Unchanged cardiomegaly. Pulmonary vasculature: Prominence of the pulmonary vasculature. Mediastinum/desiree: Unremarkable. Bones: No acute osseous abnormality identified. Other: No other significant findings. IMPRESSION: Bilateral airspace opacities and interstitial opacities, may be seen with pulmonary edema in the appr [facility] hospital clinical setting.
[2024-02-21 07:34] LABS: Potassium 4.5 mmol/L (3.5-5.1)
[2024-02-21 07:35] LABS: Anion Gap 5 (5-15); Calcium 9.3 mg/dL (8.7-10.4); Carbon Dioxide 30 mmol/L (20-31)
[2024-02-21 07:40] LABS: BUN/Creatinine Ratio 25.6 (10.0-20.0); Blood Urea Nitrogen 20 mg/dL (9-23)
[2024-02-21 07:42] LABS: Chloride 111 mmol/L (98-107); Glucose 117 mg/dL (74-106); Sodium 146 mmol/L (136-145)
[2024-02-21 08:11] VITALS: BP 134/94; TEMP 97.7
[2024-02-21 08:12] VITALS: PULSE 95; RESP 16; O2SAT 94
[2024-02-21] MEDS: FUROSEMIDE 40 MG/4 ML VIAL IV ONE (08:27)
--- NOTE | 2024-02-21 08:50 | ECG ---
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
--- NOTE | 2024-02-21 09:41 | DVHHP2 ---
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 He states he was not able to breathe and he was short of breath. So he walked here across the street from his home to be evaluated in the ER. Patient does not chest pain but he does state he has a cough. He denies any calf pain or leg swelling. He said he was taking his medication as prescribed. When evaluating patient's chart it appears patient was seen by Dr. Angela Luther February 05, 2024 and they recommended transfer higher level of care for aortic valve replacement patient states he was discharged home at that time he also had an echocardiogram that showed EF of 54% on February 05, 2024. Patient currently was provided Lasix in the ER CBC was unremarkable sodium was 146 chloride was 111 glucose was 117 BNP was greater than 500 chest x-ray showed bilateral pulmonary edema in the lung troponin was negative patient does admit that he took meth four days ago he does smoke by history they did take alcohol yesterday. With these findings we will admit and ask for Cardiology evaluation Past Medical History See HPI above Past Surgical History Denies surgical history Family History Reviewed, non-contributory to the management of this case. Past Social History Patient did meth four days ago he does smoke by history he did not drank alcohol yesterday Review of Systems Constitutional: No: Fever, Chills, Sweats, Weakness, Malaise, Other Eyes: No: Pain, Vision change, Conjunctivae inflammation, Eyelid inflammation, Other, Redness ENT: No: Ear pain, Ear discharge, Nose pain, Nose discharge, Nose congestion, Mouth pain, Mouth swelling, Throat pain, Throat swelling, Other Respiratory: Cough, Shortness of breath, SOB with excertion; No: Dry, Wheezing, Hemoptysis, Pleuritic Pain, Sputum, Wheezing, Other Cardiovascular: No: Chest Pain, Palpitations, Orthopnea, Paroxysmal Noc. Dyspnea, Edema, Lt Headedness, Other Gastrointestinal: No: Nausea, Vomiting, Abdominal Pain, Diarrhea, Constipation, Melena, Hematochezia, Other Genitourinary: No Dysuria, No Frequency, No Incontinence, No Hematuria, No Retention, No Other Musculoskeletal: No: other, neck pain, shoulder pain, arm pain, back pain, hand pain, leg pain, foot pain Skin: No: Rash, Lesions, Jaundice, Bruising, Other Neurological: Weakness; No: Numbness, Incoordination, Change in speech, Confusion, Seizures, Other Allergies: Coded Allergies: NO KNOWN ALLERGIES (Unverified , 09/21/15) Exam Vital Signs Vital Signs Date Time Temp Pulse Resp B/P (MAP) Pulse Ox O2 Delivery O2 Flow Rate FiO2 02/21/24 08:27 134/94 02/21/24 08:12 95 16 94 Nasal Cannula* 6 44 02/21/24 08:11 97.7 97.7 General Appearance: Alert, Oriented X3, Cooperative, No acute distress HEENT: Atraumatic, PERRLA, EOMI, Mucous membr. moist/pink Respiratory: Other (Diminished throughout) Cardiovascular: Regular rate, Normal S1, Normal S2, No murmurs Abdominal: Normal bowel sounds, Soft, No tenderness, No hepatospenomegaly, No masses Extremities: No clubbing, No cyanosis, No edema, Normal pulses, No tenderness/swelling Skin: No rashes, No breakdown, No significant lesion Neuro: Other (Left-sided weakness from her prior stroke in his wheelchair moves extremities on the right side able to move himself in his wheelchair) Psych/Mental Status: Mental status NL, Mood NL Labs/Xrays Chest x-ray shows pulmonary edema I reviewed labs, imaging CT scan abdomen pelvis, EKG and all diagnostic studies on this patient from ED records and the medical chart Labs Test 02/21/24 06:25 Range/Units White Blood Count 7.0 4.4-10.8 10^3/uL Red Blood Count 4.15 L 4.5-5.90 10^6/uL Hemoglobin 14.0 13.5-17.5 g/dL Hematocrit 41.3 41.0-53.0 % Mean Corpuscular Volume 99.6 80.0-100.0 fL Mean Corpuscular Hemoglobin 33.9 H 28.0-32.0 pg Mean Corpuscular Hemoglobin Concent 34.0 32.0-36.0 g/dL Red Cell Distribution Width 13.6 11.8-14.3 % Platelet Count 271 140-450 10^3/uL Mean Platelet Volume 7.7 6.9-10.8 fL Neutrophils (%) (Auto) 64.7 37.0-80.0 % Lymphocytes (%) (Auto) 19.9 10.0-50.0 % Monocytes (%) (Auto) 8.5 0.0-12.0 % Eosinophils (%) (Auto) 5.9 0.0-7.0 % Basophils (%) (Auto) 1.0 0.0-2.0 % Neutrophils # (Auto) 4.5 1.6-8.6 10 ^3/uL Lymphocytes # (Auto) 1.4 0.4-5.4 10 ^3/uL Monocytes # (Auto) 0.6 0-1.3 10 ^3/uL Eosinophils # (Auto) 0.4 0-0.8 10 ^3/uL Basophils # (Auto) 0.1 0-0.2 10 ^3/uL Nucleated Red Blood Cells 0.2 % Sodium Level 146 H 136-145 mmol/L Potassium Level 4.5 3.5-5.1 mmol/L Chloride Level 111 H 98-107 mmol/L Carbon Dioxide Level 30 20-31 mmol/L Anion Gap 5 5-15 Blood Urea Nitrogen 20 9-23 mg/dL Creatinine 0.78 0.700-1.30 mg/dL Glomerular Filtration Rate Calc 104 >90 mL/min BUN/Creatinine Ratio 25.6 H 10.0-20.0 Serum Glucose 117 H 74-106 mg/dL Calcium Level 9.3 8.7-10.4 mg/dL Troponin I High Sensitivity 41 </=54 ng/L B-Type Natriuretic Peptide 574.34 0-100 pg/mL Assessment/Plan Assessment/Plan Acute on chronic diastolic systolic CHF due likely drug induced found on cxr ordered lasix ordered Jardiance, lisinopril, Entresto, spironolactone, nitro pt had echo completed on 02/05/24 ef 54% pt was found to have severe aortic stenosis was to be transferred to high level care on last admission 02/05/24 (unsure what happened pt states was discharged) strict i/o's ordered cards consult fu results ordered asa chronic severe aortic stenosis according last cards notes recs higher level of care 01/2024 needs cards consult for recs ordered lasix for now ordered asa ordered nitro prn pain chronic svt no rapid rate cont home medication chronic cva with left side weakness monitor chronic etoh use enc abstinence chronic meth use enc abstinence chronic tobacco dependence enc abstinence i counseled the patient for 6 min about smoking suggestions did offer nicotine patch but patient declined patch and tobacco education smoking code 33657 fen/ppx diet no gi ppx since no hx of gerds or gi bleed scd plan admit to tele cards consult Plan discussed with: Patient Date of Service: Feb 21, 2024 Billing Provider: MIGUEL REYNA DNP Common Visit Codes: [id number] INP/OBS CARE (HIGH) MIGUEL REYNA DNP Feb 21, 2024 09:41
[2024-02-21] MEDS ORDERED: NITROGLYCERIN 0.4 MG SL TAB SL PRN (10:30)
[2024-02-21] MEDS: LISINOPRIL 5 MG TAB PO SCH (10:44)
[2024-02-21] MEDS ORDERED: FUROSEMIDE 40 MG/4 ML VIAL IV SCH (18:00)
[2024-02-21] MEDS ORDERED: SACUBITRIL-VALSARTAN 24mg/26mg TAB PO SCH (22:00)
[2024-02-21] MEDS ORDERED: ATORVASTATIN 20 MG TAB PO SCH (22:00)
[2024-02-22] MEDS ORDERED: ENOXAPARIN SOD 40 MG/0.4 ML SYRINGE SC SCH (10:00)
[2024-02-22] MEDS ORDERED: SPIRONOLACTONE 25 MG TAB PO SCH (10:00)
[2024-02-22] MEDS ORDERED: EMPAGLIFLOZIN 10 MG TAB PO SCH (10:00)
[2024-03-03] MEDS ORDERED: CLOP75TA70 PO (20:14)
[2024-03-03] MEDS ORDERED: IBUP1TAB5 PO (20:14)
== END 2024-02-21 14:24 | disposition left against medical advice (07) | DRG 133 ==
LOC: ER 06:03 → TELE 10:20
PROVIDERS: ADMIT Nurse Practitioner Family; ATTEND Nurse Practitioner Family
DX: J96.00 Acute respiratory failure, unspecified whether with hypoxia or hypercapnia (principal); I50.43 Acute on chronic combined systolic (congestive) and diastolic (congestive) heart failure; I47.10 Supraventricular tachycardia, unspecified; I69.354 Hemiplegia and hemiparesis following cerebral infarction affecting left non-dominant side; I11.0 Hypertensive heart disease with heart failure; M10.9 Gout, unspecified; F17.210 Nicotine dependence, cigarettes, uncomplicated; I35.0 Nonrheumatic aortic (valve) stenosis; F15.90 Other stimulant use, unspecified, uncomplicated; T50.905A Adverse effect of unspecified drugs, medicaments and biological substances, initial encounter; Y92.89 Other specified places as the place of occurrence of the external cause
CPT/HCPCS: 36415; 71045; 80048; 83880; 84484; 85025; 93005; 99291; G0378

== ENCOUNTER 2024-03-03 04:20 | Inpatient (IN) | payer MEDICAID ==
[~2024-03-03] VITALS: Ht 167.6 cm; Wt 83.2 kg
[~2024-03-03 04:20] MED LIST changes: +ALLO300T2 PO; +CLOP75TA70 PO; +IBUP1TAB5 PO; +TAMS0.4C39 PO
--- NOTE | 2024-03-03 04:36 | ED.PDOC ---
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 Patient is homeless, picked up by paramedics across the street from the hospital. Has poor compliance to his medications. Denies any acute chest pains just coming in for shortness of breath. Was saturating 89% on room air. 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 Information Source: Patient, Emergency Med Personnel Mode of Arrival: EMS Severity: Moderate Timing: Hours Duration: Since onset Context: At Rest, With Light Exertion PE Risk Factors: None History of: None Prehospital treatment: Oxygen Modifying Factors: Nothing Past Medical History PAST MEDICAL HISTORY: CHF, CVA (Left-sided residuals), Gout Past Medical History (Other): Aortic stenosis, SVTs Surgical History: Denies all surgeries Family History Family History: Unknown Social History Smoker: Cigarettes, Greater Than 1 Pack/Day Alcohol: Heavy Drugs: Methamphetamine Lives In: Homeless Constitutional: reports: fatigue, weakness; denies: chills, diaphoresis, fever, malaise, sweats, others EENTM: denies: blurred vision, double vision, ear bleeding, ear discharge, ear drainage, ear pain, ear ringing, eye pain, eye redness, hearing loss, mouth pain, mouth swelling, nasal discharge, nose bleeding, nose congestion, nose pain, photophobia, tearing, throat pain, throat swelling, voice changes, others Respiratory: reports: SOB at rest, shortness of breath, SOB with excertion; denies: cough, hemoptysis, orthopnea, stridor, wheezing, others Cardiovascular: denies: chest pain, dizzy spells, diaphoresis, Dyspnea on exertion, edema, irregular heart beat, left arm pain, lightheadedness, palpitations, PND, syncope, others Gastrointestinal: denies: abdomen distended, abdominal pain, blood streaked bowels, constipated, diarrhea, dysphagia, difficulty swallowing, hematemesis, melena, nausea, poor appetite, poor fluid intake, rectal bleeding, rectal pain, vomiting, others Genitourinary: denies: burning, dysuria, flank pain, frequency, hematuria, incontinence, penile discharge, penile sore, pain, testicle pain, testicle swelling, urgency, others Neurological: denies: dizziness, fainting, headache, left sided numbness, left sided weakness, numbness, paresthesia, pre-existing deficit, right sided numbness, right sided weakness, seizure, speech problems, tingling, tremors, weakness, others Musculoskeletal: denies: back pain, gout, joint pain, joint swelling, muscle pain, muscle stiffness, neck pain, others Integumetry: denies: bruises, change in color, change in hair/nails, dryness, laceration, lesions, lumps, rash, wounds, others Allergic/Immunocompromised: denies: Difficulty Healing, Frequent Infections, Hives, Itching, others Hematologic/Lymphatic: denies: anemia, blood clots, easy bleeding, easy bruising, swollen glands, others Endocrine: denies: excessive hunger, excessive sweating, excessive thirst, excessive urination, flushing, intolerance to cold, intolerance to heat, unexplained weight gain, unexplained weight loss, others Psychiatric: denies: anxiety, bipolar disorder, depression, hopeless, panic disorder, schizophrenia, sleepless, suicidal, others Physical Exam General Appearance: No Apparent Distress, Normal HEENT: Normal ENT Inspection, Pharynx Normal, TMs Normal Neck: Full Range of Motion, Non-Tender, Normal, Normal Inspection Respiratory: Chest Non-Tender, Lungs Clear, No Accessory Muscle Use, No Respiratory Distress, Normal Breath Sounds Cardiovascular: No Edema, No JVD, No Murmur, No Gallop, Normal Peripheral Pulses, Regular Rate/Rhythm Breast Exam: Deferred Gastrointestinal: No Organomegaly, Non Tender, No Pulsatile Mass, Normal Bowel Sounds, Soft Genitalia: Deferred Pelvic: Deferred Rectal: Deferred Extremities: No calf tenderness, Normal capillary refill, Normal inspection, Normal range of motion, Non-tender, No pedal edema Musculoskeletal : Apperance: Normal Neurologic: Alert, upper leather sorter II-XII nml as Tested, No Motor Deficits, Normal Affect, Normal Mood, No Sensory Deficits Cerebellar Function: Normal Reflexes: Normal Skin: Dry, Normal Color, Warm Lymphatic: No Adenopathy Was a procedure done? Was a procedure done?: No Differential Dx Differential Diagnosis: Bronchitis, CHF, COPD, Myocardial infarction, Panic Attack, Pneumonia, Respiratory Distress, URI X-Ray, Labs, Meds, VS Vital Signs Date Time Temp Pulse Resp B/P (MAP) Pulse Ox O2 Delivery O2 Flow Rate FiO2 03/03/24 04:31 97.8 108 24 159/95 (116) 96 03/03/24 04:28 106 Time of 1ST Reevaluation: 04:32 Reevaluation 1ST: Unchanged Time of 2ND Reevaluation: 04:52 Reevaluation 2ND: Unchanged Patient Education/Counseling: Diagnosis, Treatment Family Education/Counseling: No Family Present Departure 1 Departure Time of Disposition: 04:52 Impression: Primary Impression: Methamphetamine abuse Additional Impressions: Respiratory failure with hypoxia Congestive heart failure Disposition: ADMITTED INPATIENT Admit to: Tele Condition: Guarded Critical Care Note Critical Care Time?: Yes (35 min-critical care time only) Critical care comment: Hypoxic Total critical care time: Approximately 36 minutes Due to a high probability of clinically significant, life threatening deterioration, the patient required my highest level of preparedness to intervene emergently and I personally spent this critical care time directly and personally managing the patient. This critical care time included obtaining a history; examining the patient; pulse oximetry; ordering and review of studies; arranging urgent treatment with development of a management plan; evaluation of patient's response to treatment; frequent reassessment; and, discussions with other providers. This critical care time was performed to assess and manage the high probability of imminent, life-threatening deterioration that could result in multi-organ failure. It was exclusive of separately billable procedures and treating other patients. Stability Stability form required: No Heart Score Heart Score: Heart Score Response (Comments) Value History Moderate Suspicious 1 EKG Repolarization Disturb 1 Age 45-64 1 Risk Factors >3 or Hx ASHD 2 Troponin Normal limit 0 Total 5 I personally scribed for JESSICA FRASER MD ([email or web address]) on 03/03/24 at 04:35. Electronically submitted by Christo Alaniz ([email or web address]). JESSICA FRASER MD Mar 03, 2024 04:35
--- NOTE | 2024-03-03 04:45 | DVH ---
CHEST RADIOGRAPH Indication: SOB Technique: Single frontal view of the chest was obtained Comparison: XY CHEST PORTABLE on DOS: 02/21/24, XY CHEST PORTABLE on DOS: 02/10/24 IMPRESSION: Cardiomegaly. Prominent pulmonary arteries and interstitial airspace opacities. No sizable effusion or pneumothorax.
[2024-03-03] MEDS: ASPirin 81 mg TAB PO ONE (05:27)
[2024-03-03] MEDS: FUROSEMIDE 40 MG/4 ML VIAL IV ONE (05:27)
[2024-03-03 05:45] LABS: Basophils # (auto) 0 10 ^3/uL (0-0.2); Basophils % (auto) 0.9 % (0.0-2.0); Eosinophils # (auto) 0.1 10 ^3/uL (0-0.8); Hematocrit 42.6 % (41.0-53.0); Hemoglobin 14.5 g/dL (13.5-17.5); Lymphocytes # (auto) 0.9 10 ^3/uL (0.4-5.4); Lymphocytes % (auto) 19.9 % (10.0-50.0); Mean Corpuscular Hemoglobin 33.6 pg (28.0-32.0); Mean Corpuscular Hgb Conc. 34.1 g/dL (32.0-36.0); Mean Corpuscular Volume 98.5 fL (80.0-100.0); Monocytes # (auto) 0.2 10 ^3/uL (0-1.3); Monocytes % (auto) 5.3 % (0.0-12.0); Neutrophils # (auto) 3.3 10 ^3/uL (1.6-8.6); Neutrophils % (auto) 71.9 % (37.0-80.0); Nucleated Red Blood Cells % 0.2 %; Platelet Count (auto) 246 10^3/uL (140-450); Red Blood Cells 4.32 10^6/uL (4.5-5.90); Red Cell Distribution Width 13.3 % (11.8-14.3); White Blood Cell 4.6 10^3/uL (4.4-10.8)
[2024-03-03 05:53] LABS: Alanine Aminotransferase 37 U/L (7-40); Albumin 4.2 g/dL (3.2-4.8); Anion Gap 9 (5-15); BUN/Creatinine Ratio 14.1 (10.0-20.0); Bilirubin, Total 0.4 mg/dL (0.2-1.0); Blood Urea Nitrogen 10 mg/dL (9-23); Calcium 9.1 mg/dL (8.7-10.4); Carbon Dioxide 26 mmol/L (20-31); Glucose 90 mg/dL (74-106); Potassium 4.1 mmol/L (3.5-5.1); Sodium 142 mmol/L (136-145); Total Protein 7.6 g/dL (5.7-8.2)
[2024-03-03 06:01] LABS: Alkaline Phosphatase 121 U/L (46-116); Aspartate Aminotransferase 65 U/L (13-40); Chloride 107 mmol/L (98-107)
[2024-03-03 06:44] VITALS: PULSE 104; RESP 18; O2SAT 96
[2024-03-03 08:00] VITALS: PULSE 102; RESP 12; O2SAT 96
[2024-03-03] MEDS ORDERED: NITROGLYCERIN 0.4 MG SL TAB SL PRN (09:00)
[2024-03-03] MEDS ORDERED: MORPHINE SULFATE INJ 2 MG/ml SYRG IV PRN (09:00)
[2024-03-03] MEDS ORDERED: ONDANSETRON HCL 4 MG/2 ML VIAL IV PRN (09:00)
[2024-03-03] MEDS ORDERED: ATOR40TA52 PO (09:33)
--- NOTE | 2024-03-03 09:38 | DVHHP2 ---
History of Present Illness Reason for Visit: Shortness of breath History of Present Illness Doug Leger is a 59-year-old male with past medical history of CHF, CVA with left-sided deficits, SVT, obesity, and severe aortic stenosis without repair who presents to the ED today for shortness of breath x1 day. Patient reports that he is homeless he was initially sitting and stated that he just suddenly got short of breath was attempting to walk to the ED however EMS picked him up and brought him to the hospital. Patient reports that he isn't taking his medications because he is homeless. Patient reports that he was here in the hospital last month for the same issue. Patient denies fever, chills, chest pain, abdominal pain, nausea, vomiting, diarrhea, lightheadedness, and dizziness. 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 Past Medical History Obesity Past Surgical History: None Family History: Other (Unknown) Smoke: 1 pack per day ALCOHOL: heavy Drugs: Other (Methamphetamine) Lives: Homeless Domestic Violence: Neg Review of Systems Constitutional: No: Fever, Chills, Sweats, Weakness, Malaise, Other Eyes: No: Pain, Vision change, Conjunctivae inflammation, Eyelid inflammation, Other, Redness ENT: No: Ear pain, Ear discharge, Nose pain, Nose discharge, Nose congestion, Mouth pain, Mouth swelling, Throat pain, Throat swelling, Other Respiratory: Shortness of breath; No: Cough, Dry, SOB with excertion, Wheezing, Hemoptysis, Pleuritic Pain, Sputum, Wheezing, Other Cardiovascular: No: Chest Pain, Palpitations, Orthopnea, Paroxysmal Noc. Dyspnea, Edema, Lt Headedness, Other Gastrointestinal: No: Nausea, Vomiting, Abdominal Pain, Diarrhea, Constipation, Melena, Hematochezia, Other Genitourinary: No Dysuria, No Frequency, No Incontinence, No Hematuria, No Retention, No Other Musculoskeletal: No: other, neck pain, shoulder pain, arm pain, back pain, hand pain, leg pain, foot pain Skin: No: Rash, Lesions, Jaundice, Bruising, Other Neurological: Weakness, Other (History of CVA with left-sided weakness not acute); No: Numbness, Incoordination, Change in speech, Confusion, Seizures Allergies: Coded Allergies: NO KNOWN ALLERGIES (Unverified , 09/21/15) Medications Current Medications Medications Dose Ordered Sig/Jana Route Start Time Stop Time Status Last Admin Dose Admin Furosemide 40 mg DAILY IV 03/03/24 10:00 UNV Ondansetron HCl 4 mg Q4HP PRN IV 03/03/24 09:00 UNV Acetaminophen 650 mg Q6HP PRN PO 03/03/24 09:00 UNV Nitroglycerin 0.4 mg Q5MINP PRN SL 03/03/24 09:00 UNV Morphine Sulfate 2 mg Q30M PRN IV 03/03/24 09:00 UNV Exam Vital Signs Vital Signs Date Time Temp Pulse Resp B/P (MAP) Pulse Ox O2 Delivery O2 Flow Rate FiO2 03/03/24 07:00 98 14 135/91 (106) 95 03/03/24 06:44 Room Air* 0 03/03/24 04:31 97.8 General Appearance: Alert, Oriented X3, Cooperative, No acute distress HEENT: Atraumatic, PERRLA, EOMI, Mucous membr. moist/pink Respiratory: Normal air movement Cardiovascular: Normal S1, Normal S2, No murmurs Abdominal: Normal bowel sounds, Soft, No tenderness, No hepatospenomegaly, No masses Extremities: No clubbing, No cyanosis, No edema, Normal pulses, No tenderness/swelling Skin: No rashes, No breakdown, No significant lesion Neuro: Normal speech, Normal tone, Sensation intact Psych/Mental Status: Mental status NL, Mood NL Labs/Xrays Labs Test 03/03/24 06:25 03/03/24 05:12 Range/Units Troponin I High Sensitivity 53 </=54 ng/L White Blood Count 4.6 4.4-10.8 10^3/uL Red Blood Count 4.32 L 4.5-5.90 10^6/uL Hemoglobin 14.5 13.5-17.5 g/dL Hematocrit 42.6 41.0-53.0 % Mean Corpuscular Volume 98.5 80.0-100.0 fL Mean Corpuscular Hemoglobin 33.6 H 28.0-32.0 pg Mean Corpuscular Hemoglobin Concent 34.1 32.0-36.0 g/dL Red Cell Distribution Width 13.3 11.8-14.3 % Platelet Count 246 140-450 10^3/uL Mean Platelet Volume 6.9 6.9-10.8 fL Neutrophils (%) (Auto) 71.9 37.0-80.0 % Lymphocytes (%) (Auto) 19.9 10.0-50.0 % Monocytes (%) (Auto) 5.3 0.0-12.0 % Eosinophils (%) (Auto) 2.0 0.0-7.0 % Basophils (%) (Auto) 0.9 0.0-2.0 % Neutrophils # (Auto) 3.3 1.6-8.6 10 ^3/uL Lymphocytes # (Auto) 0.9 0.4-5.4 10 ^3/uL Monocytes # (Auto) 0.2 0-1.3 10 ^3/uL Eosinophils # (Auto) 0.1 0-0.8 10 ^3/uL Basophils # (Auto) 0 0-0.2 10 ^3/uL Nucleated Red Blood Cells 0.2 % Sodium Level 142 136-145 mmol/L Potassium Level 4.1 3.5-5.1 mmol/L Chloride Level 107 98-107 mmol/L Carbon Dioxide Level 26 20-31 mmol/L Anion Gap 9 5-15 Blood Urea Nitrogen 10 9-23 mg/dL Creatinine 0.71 0.700-1.30 mg/dL Glomerular Filtration Rate Calc 107 >90 mL/min BUN/Creatinine Ratio 14.1 10.0-20.0 Serum Glucose 90 74-106 mg/dL Calcium Level 9.1 8.7-10.4 mg/dL Total Bilirubin 0.4 0.2-1.0 mg/dL Aspartate Amino Transferase (AST) 65 H 13-40 U/L Alanine Aminotransferase (ALT) 37 7-40 U/L Alkaline Phosphatase 121 H 46-116 U/L B-Type Natriuretic Peptide 248.39 0-100 pg/mL Total Protein 7.6 5.7-8.2 g/dL Albumin 4.2 3.2-4.8 g/dL CHEST RADIOGRAPH Indication: SOB Technique: Single frontal view of the chest was obtained Comparison: XY CHEST PORTABLE on DOS: 02/21/24, XY CHEST PORTABLE on DOS: 02/10/24 IMPRESSION: Cardiomegaly. Prominent pulmonary arteries and interstitial airspace opacities. No sizable effusion or pneumothorax. Assessment/Plan Assessment/Plan Assessment/Plan: Acute on chronic diastolic systolic CHF likely 2nd to drug induced Acute on chronic decompensated HFpEF, NYHA class III CXR lasix ECHO done on 02/03/24 EF 55% cards cx for severe aortic stenosis asa nitro prn Strict I&Os statin - resumed home med labs ekg bnp troponin's UA Obesity Counseled patient on lifestyle modifications, diet, and exercise Chronic severe aortic stenosis last cardiology notes was rec HLOC 01/2024 lasix asa nitro prn pain Chronic SVT cards cx monitor Chronic CVA with left side deficits monitor Chronic ETOH use Counseled on EtOH use UDS Chronic meth Educated patient and counseled on cessation Chronic tobacco use Counseled and educated patient on tobacco cessation and offered nicotine patch but patient declined FEN/PPX diet hl GI prophylaxis not indicated no history of GERD SCDs Admit patient to tele Discussed plan of care with patient and nurse Home medications reconciled Plan discussed with: Patient My Orders Orders - LALITO ROMANO [employer]PER[employer] Procedure Category Date Status Time Furosemide Injection PHA 03/03/24 Logged (Lasix Injection) 10:00 Chest Xray 1 View XY 03/04/24 Logged 04:00 Admit ADMIT 03/03/24 Transmitted 08:50 Allergies KERVIN 03/03/24 In Process 08:50 Code Status CODE 03/03/24 Transmitted 08:50 Ondansetron Hcl PHA 03/03/24 Logged (Zofran) 09:00 Complete Blood Count LAB 03/04/24 Verified 04:00 Comprehensive LAB 03/04/24 Verified Metabolic Panel 04:00 Cardiac DIET 03/03/24 Transmitted Diet-2gna,Lofat,Lochol Breakfast Acetaminophen Tablet PHA 03/03/24 Logged (Tylenol Tablet) 09:00 Nitroglycerin PHA 03/03/24 Logged Sublingual (Ntrostat 09:00 Morphine Sulfate PHA 03/03/24 Logged Injection 09:00 Stat Ekg For Chest KERVIN 03/03/24 In Process Pain 08:50 Notify Of Changes KERVIN 03/03/24 In Process From Base 08:50 Medical Record Assistant For KERVIN 03/03/24 In Process 24 Hours 08:50 Emergency Dysrhythmia KERVIN 03/03/24 In Process Protocol 08:50 Rhythm Strips Once KERVIN 03/03/24 In Process Every Shift 08:50 Oxygen By Nasal RT 03/03/24 Transmitted Cannula 08:50 Drug Screen LAB 03/03/24 Logged 08:50 * Cash Application Representative CONS 03/03/24 Transmitted Consult Thyroid Stimulating LAB 03/03/24 Logged Hormone 08:50 * Cardiology Consult CONS 03/03/24 Transmitted 08:50 Date of Service: Mar 03, 2024 Billing Provider: LALITO ROMANO Common Visit Codes: [id number] INP/OBS CARE (MOD) LALITO ROMANO Mar 03, 2024 09:38
[2024-03-03 10:46] LABS: Amphetamine Screen, Urine Neg (NEGATIVE)
[2024-03-03 10:49] LABS: Barbiturate Scree,Urine Neg (NEGATIVE); Benzodiazephine Screen, Urine Neg (NEGATIVE); Cannabinoid Screen, Urine Neg (NEGATIVE); Cocaine Screen, Urine Neg (NEGATIVE); Opiate Scree,Urine Neg (NEGATIVE); Phencyclidine Screen, Urine Neg (NEGATIVE)
[2024-03-03] MEDS: ACETAMINOPHEN 325 MG TAB PO PRN (15:39)
[2024-03-03 20:10] VITALS: BP 159/107; PULSE 101; RESP 18; TEMP 98; O2SAT 97
[2024-03-03] MEDS ORDERED: FURO20TA4 PO (20:14)
[2024-03-03 21:00] VITALS: BP 146/91; PULSE 99; RESP 19; TEMP 97.7; O2SAT 93
[2024-03-03] MEDS ORDERED: hydrALAZINE HCL 20 MG/ML VL IV PRN (22:45)
[2024-03-03] MEDS: CARVEDILOL 12.5 MG TAB PO SCH (23:06)
[2024-03-04] VITALS (8 sets, daily range): BP systolic 113–151; BP diastolic 85–95; PULSE 76–105; RESP 17–19; TEMP 97.5–98.2; O2SAT 95–98
--- NOTE | 2024-03-04 05:35 | DVH ---
CHEST RADIOGRAPH Indication: acute on chronic chf exacerbation Technique: Single frontal view of the chest was obtained Comparison: XY CHEST PORTABLE on DOS: 03/03/24, XY CHEST PORTABLE on DOS: 02/21/24, XY CHEST PORTABLE on DOS: 02/10/24 IMPRESSION: The heart is prominent size. There are low lung volumes. Patchy airspace opacities appear similar. No sizable effusion or pneumothorax.
[2024-03-04 06:19] LABS: Basophils # (auto) 0.1 10 ^3/uL (0-0.2); Basophils % (auto) 1.2 % (0.0-2.0); Eosinophils # (auto) 0.4 10 ^3/uL (0-0.8); Eosinophils % (auto) 7.4 % (0.0-7.0); Hematocrit 41.3 % (41.0-53.0); Hemoglobin 14.1 g/dL (13.5-17.5); Lymphocytes # (auto) 1.2 10 ^3/uL (0.4-5.4); Lymphocytes % (auto) 22.5 % (10.0-50.0); Mean Corpuscular Hemoglobin 33.3 pg (28.0-32.0); Mean Corpuscular Volume 97.8 fL (80.0-100.0); Monocytes # (auto) 0.4 10 ^3/uL (0-1.3); Monocytes % (auto) 7.2 % (0.0-12.0); Neutrophils # (auto) 3.3 10 ^3/uL (1.6-8.6); Neutrophils % (auto) 61.7 % (37.0-80.0); Nucleated Red Blood Cells % 0.2 %; Platelet Count (auto) 243 10^3/uL (140-450); Red Blood Cells 4.23 10^6/uL (4.5-5.90); Red Cell Distribution Width 13.7 % (11.8-14.3); White Blood Cell 5.3 10^3/uL (4.4-10.8)
[2024-03-04 06:34] LABS: Alanine Aminotransferase 30 U/L (7-40); Albumin 3.6 g/dL (3.2-4.8); Alkaline Phosphatase 99 U/L (46-116); Anion Gap 6 (5-15); Aspartate Aminotransferase 38 U/L (13-40); Bilirubin, Total 0.8 mg/dL (0.2-1.0); Blood Urea Nitrogen 12 mg/dL (9-23); Calcium 9.2 mg/dL (8.7-10.4); Carbon Dioxide 28 mmol/L (20-31); Chloride 107 mmol/L (98-107); Potassium 3.7 mmol/L (3.5-5.1); Sodium 141 mmol/L (136-145); Total Protein 6.7 g/dL (5.7-8.2)
[2024-03-04 06:42] LABS: Glucose 144 mg/dL (74-106)
[2024-03-04] MEDS: FUROSEMIDE 40 MG/4 ML VIAL IV SCH (10:31)
--- NOTE | 2024-03-04 14:26 | DVHPN2 ---
Reviewed: Care Plan, H&P, Labs, Medications, Previous Orders, Radiology Changes from previous H/P or p: No Changes Eyes: No Pain, No Vision change, No Conjunctivae inflammation, No Eyelid inflammation, No Other, No Redness ENT: No Ear pain, No Ear discharge, No Nose pain, No Nose discharge, No Nose congestion, No Mouth pain, No Mouth swelling, No Throat pain, No Throat swelling, No Other Cardiovascular: No Chest Pain, No Palpitations, No Orthopnea, No Paroxysmal Noc. Dyspnea, No Edema, No Lt Headedness, No Other Respiratory: No Cough, No Dry; Shortness of breath; No SOB with excertion, No Wheezing, No Hemoptysis, No Pleuritic Pain, No Sputum, No Other Gastrointestinal: No Nausea, No Vomiting, No Abdominal Pain, No Diarrhea, No Constipation, No Melena, No Hematochezia, No Other Genitourinary: No Dysuria, No Frequency, No Incontinence, No Hematuria, No Retention, No Other Musculoskeletal: No other, No neck pain, No shoulder pain, No arm pain, No back pain, No hand pain, No leg pain, No foot pain Skin: No Rash, No Lesions, No Jaundice, No Bruising, No Other Objective Vitals Vital Signs Date Time Temp Pulse Resp B/P (MAP) Pulse Ox O2 Delivery O2 Flow Rate FiO2 03/04/24 13:00 97.5 91 18 113/92 (99) 96 97.5 03/04/24 08:05 Nasal Cannula* 2 28 Intake/Output Intake and Output 03/04/24 07:00 Intake Total 318 ml Output Total 325 ml Balance -7 ml Intake Oral 318 ml Output Urine Total 325 ml Medications Current Medications Medications Dose Ordered Sig/Jana Route Start Time Stop Time Status Last Admin Dose Admin Furosemide 40 mg DAILY IV 03/04/24 10:00 03/04/24 10:31 40 MG Ondansetron HCl 4 mg Q4HP PRN IV 03/03/24 09:00 Acetaminophen 650 mg Q6HP PRN PO 03/03/24 09:00 03/03/24 15:39 650 MG Nitroglycerin 0.4 mg Q5MINP PRN SL 03/03/24 09:00 Morphine Sulfate 2 mg Q30M PRN IV 03/03/24 09:00 Carvedilol 12.5 mg Q12HR PO 03/03/24 22:45 03/04/24 10:34 12.5 MG Hydralazine HCl 10 mg Q6HP PRN IV 03/03/24 22:45 Laboratory Results Laboratory Tests 03/04/24 05:53 Chemistry Test 03/04/24 05:53 Albumin 3.6 g/dL (3.2-4.8) Calcium Level 9.2 mg/dL (8.7-10.4) Total Protein 6.7 g/dL (5.7-8.2) LFT Test 03/04/24 05:53 Alanine Aminotransferase (ALT) 30 U/L (7-40) Alkaline Phosphatase 99 U/L (46-116) Aspartate Amino Transferase (AST) 38 U/L (13-40) Total Bilirubin 0.8 mg/dL (0.2-1.0) Labs and/or images reviewed: Labs reviewed by me, Image(s) reviewed by me Assessment/Plan Assessment/Plan Acute On chronic systolic diastolic congestive heart failure drug-induced: Cardiology consult for Dr. Luther Morbid obesity Chronic severe aortic stenosis Chronic SVT CVA with left hemiplegia Chronic alcohol abuse Chronic meth abuse Chronic tobacco abuse Homelessness Time spent 55 minutes Patient is full code Advanced care planning time 20 minutes Plan discussed with: Patient Date of Service: Mar 04, 2024 Billing Provider: WILFREDO KATZ MD Common Visit Codes: [id number] INP/OBS CARE(HIGH) Secondary Visit Codes: [id number] CARE PLAN 30 MINUTES WILFREDO KATZ MD Mar 04, 2024 14:26
[2024-03-04] MEDS: MUPIROCIN 2% OINT 15gm or 22gm FOR MRSA NARES EACHNOSTRI SCH (21:18)
--- NOTE | 2024-03-05 | DVHINCON2 ---
Date of service: Mar 04, 2024 Referring Physician Sky Reason for Consultation Severe aortic stenosis History of Present Illness This is a 59-year-old male with a past medical history of congestive heart failure, severe aortic stenosis without repair, SVT, CVA five months ago with residual left-sided deficit, obesity, alcohol abuse, tobacco use, and methamphetamine abuse who presented to the ED with complaints of feeling short of breath. Patient is homeless, picked up by paramedics across the [address] from the hospital. Has poor compliance to his medications. Patient was saturating 89% on room air. Troponin negative x2. Chest x-ray shows cardiomegaly, prominent pulmonary arteries and interstitial airspace opacities. Patient was admitted to the hospital, I am asked to consult on this patient. Family History: Patient reports no known family medical history. Allergies: Coded Allergies: NO KNOWN ALLERGIES (Unverified , 09/21/15) Home Meds Active Scripts Furosemide (Lasix) 20 Mg Tb, 1 TAB PO DAILYP PRN for 30 Days, #30 TAB 0 Refills Prov:JAKE SAUCEDO MD 02/07/24 Reported Medications Clopidogrel Bisulfate (CLOPIDOGREL) 75 Mg Tab, 1 TAB PO DAILY 03/03/24 Ibuprofen Micronized (Ibuprofen) 600 Mg Tab, 1 TAB PO TID 03/03/24 Furosemide (Furosemide) 20 Mg Tab, 1 TAB PO DAILY 03/03/24 Atorvastatin Calcium (ATORVASTATIN CALCIUM) 40 Mg Tab, 1 TAB PO DAILY 03/03/24 Current Medications Current Medications Medications (Trade) Dose Ordered Sig/Jana Route PRN Reason Start Time Stop Time Status Last Admin Furosemide (Lasix Injection) 40 mg DAILY IV 03/04/24 10:00 03/04/24 10:31 Mupirocin (Bactroban 2% Ointment) 1 applic BID EACHNOSTRI 03/04/24 22:00 03/09/24 21:59 03/04/24 21:18 Review of Systems Constitutional: reports: fatigue, weakness; denies: chills, diaphoresis, fever, malaise, sweats, others EENTM: denies: blurred vision, double vision, ear bleeding, ear discharge, ear drainage, ear pain, ear ringing, eye pain, eye redness, hearing loss, mouth pain, mouth swelling, nasal discharge, nose bleeding, nose congestion, nose pain, photophobia, tearing, throat pain, throat swelling, voice changes, others Respiratory: reports: SOB at rest, shortness of breath, SOB with excertion; denies: cough, hemoptysis, orthopnea, stridor, wheezing, others Cardiovascular: denies: chest pain, dizzy spells, diaphoresis, Dyspnea on exertion, edema, irregular heart beat, left arm pain, lightheadedness, palpitations, PND, syncope, others Gastrointestinal: denies: abdomen distended, abdominal pain, blood streaked bowels, constipated, diarrhea, dysphagia, difficulty swallowing, hematemesis, melena, nausea, poor appetite, poor fluid intake, rectal bleeding, rectal pain, vomiting, others Genitourinary: denies: burning, dysuria, flank pain, frequency, hematuria, incontinence, penile discharge, penile sore, pain, testicle pain, testicle swelling, urgency, others Neurological: denies: dizziness, fainting, headache, left sided numbness, left sided weakness, numbness, paresthesia, pre-existing deficit, right sided numbness, right sided weakness, seizure, speech problems, tingling, tremors, weakness, others Musculoskeletal: denies: back pain, gout, joint pain, joint swelling, muscle pain, muscle stiffness, neck pain, others Integumetry: denies: bruises, change in color, change in hair/nails, dryness, laceration, lesions, lumps, rash, wounds, others Allergic/Immunocompromised: denies: Difficulty Healing, Frequent Infections, Hives, Itching, others Hematologic/Lymphatic: denies: anemia, blood clots, easy bleeding, easy bruising, swollen glands, others Endocrine: denies: excessive hunger, excessive sweating, excessive thirst, excessive urination, flushing, intolerance to cold, intolerance to heat, unexplained weight gain, unexplained weight loss, others Psychiatric: denies: anxiety, bipolar disorder, depression, hopeless, panic disorder, schizophrenia, sleepless, suicidal, others Vital Signs Vital Signs Date Time Temp Pulse Resp B/P (MAP) Pulse Ox O2 Delivery O2 Flow Rate FiO2 03/04/24 22:00 98.1 94 18 133/92 (106) 96 98.1 03/04/24 20:00 Nasal Cannula* 2 28 Physical Exam General: Awake, alert,oriented. LUNGS: Diminished breath sounds. CARDIOVASCULAR: Heart sounds are good. ABDOMEN: Soft. Labs/Diagnostic Data Labs Test 03/04/24 05:53 03/03/24 06:25 03/03/24 05:35 03/03/24 05:12 Range/Units White Blood Count 5.3 4.4-10.8 10^3/uL Red Blood Count 4.23 L 4.5-5.90 10^6/uL Hemoglobin 14.1 13.5-17.5 g/dL Hematocrit 41.3 41.0-53.0 % Mean Corpuscular Volume 97.8 80.0-100.0 fL Mean Corpuscular Hemoglobin 33.3 H 28.0-32.0 pg Mean Corpuscular Hemoglobin Concent 34.0 32.0-36.0 g/dL Red Cell Distribution Width 13.7 11.8-14.3 % Platelet Count 243 140-450 10^3/uL Mean Platelet Volume 7.2 6.9-10.8 fL Neutrophils (%) (Auto) 61.7 37.0-80.0 % Lymphocytes (%) (Auto) 22.5 10.0-50.0 % Monocytes (%) (Auto) 7.2 0.0-12.0 % Eosinophils (%) (Auto) 7.4 H 0.0-7.0 % Basophils (%) (Auto) 1.2 0.0-2.0 % Neutrophils # (Auto) 3.3 1.6-8.6 10 ^3/uL Lymphocytes # (Auto) 1.2 0.4-5.4 10 ^3/uL Monocytes # (Auto) 0.4 0-1.3 10 ^3/uL Eosinophils # (Auto) 0.4 0-0.8 10 ^3/uL Basophils # (Auto) 0.1 0-0.2 10 ^3/uL Nucleated Red Blood Cells 0.2 % Sodium Level 141 136-145 mmol/L Potassium Level 3.7 3.5-5.1 mmol/L Chloride Level 107 98-107 mmol/L Carbon Dioxide Level 28 20-31 mmol/L Anion Gap 6 5-15 Blood Urea Nitrogen 12 9-23 mg/dL Creatinine 0.75 0.700-1.30 mg/dL Glomerular Filtration Rate Calc 105 >90 mL/min BUN/Creatinine Ratio 16.0 10.0-20.0 Serum Glucose 144 H 74-106 mg/dL Calcium Level 9.2 8.7-10.4 mg/dL Total Bilirubin 0.8 0.2-1.0 mg/dL Aspartate Amino Transferase (AST) 38 13-40 U/L Alanine Aminotransferase (ALT) 30 7-40 U/L Alkaline Phosphatase 99 46-116 U/L Total Protein 6.7 5.7-8.2 g/dL Albumin 3.6 3.2-4.8 g/dL Troponin I High Sensitivity 53 </=54 ng/L Thyroid Stimulating Hormone (TSH) 0.95 0.55-4.78 uIU/mL Urine Opiates Screen Neg NEGATIVE Urine Fentanyl Screen Neg NEGATIVE Urine Barbiturates Screen Neg NEGATIVE Urine Phencyclidine Screen Neg NEGATIVE Urine Amphetamines Screen Neg NEGATIVE Urine Benzodiazepines Screen Neg NEGATIVE Urine Cocaine Screen Neg NEGATIVE Urine Cannabinoids Screen Neg NEGATIVE B-Type Natriuretic Peptide 248.39 0-100 pg/mL Microbiology Date/Time Source Procedure Growth Status 03/04/24 05:25 Nose MRSA Screen - Final Methicillin Resistant S.aureus Complete Assessment Acute on chronic systolic diastolic congestive heart failure drug-induced. Morbid obesity. Chronic severe aortic stenosis. Chronic SVT. CVA with left hemiplegia. Chronic alcohol abuse. Chronic meth abuse. Chronic tobacco abuse. Homelessness. Plan/Recommendation I agree with your ongoing assessment and care of plan. Coreg. Diuretics with Lasix. Morphine for pain management. Nitro SL. Additional plan as per the hospital course. A total of 45 minutes was spent reviewing the patient record, examining the patient, making a diagnostic and therapeutic plan, discussing this plan with medical personnel, following up on diagnostic studies and following the patient for clinical stability excluding any and all procedures. At least 50% of this time was spent in direct, [id number] contact. Plan discussed with: Patient LILLIANA HURST MD Mar 04, 2024 23:20
[2024-03-05 01:00] VITALS: BP 130/77; PULSE 83; RESP 18; TEMP 97.9; O2SAT 93
[2024-03-05 05:00] VITALS: BP 115/85; PULSE 78; RESP 18; TEMP 97.4; O2SAT 91
[2024-03-05] MEDS: HYDROcodone-ACET 5/325MG TAB PO ONE (05:31)
[2024-03-05 09:15] VITALS: BP 116/75; PULSE 73; RESP 17; TEMP 98.5; O2SAT 97
--- NOTE | 2024-03-05 11:58 | DVHPN2 ---
Reviewed: Care Plan, H&P, Labs, Medications, Previous Orders, Radiology Changes from previous H/P or p: No Changes Eyes: No Pain, No Vision change, No Conjunctivae inflammation, No Eyelid inflammation, No Other, No Redness ENT: No Ear pain, No Ear discharge, No Nose pain, No Nose discharge, No Nose congestion, No Mouth pain, No Mouth swelling, No Throat pain, No Throat swelling, No Other Cardiovascular: No Chest Pain, No Palpitations, No Orthopnea, No Paroxysmal Noc. Dyspnea, No Edema, No Lt Headedness, No Other Respiratory: No Cough, No Dry; Shortness of breath; No SOB with excertion, No Wheezing, No Hemoptysis, No Pleuritic Pain, No Sputum, No Other Gastrointestinal: No Nausea, No Vomiting, No Abdominal Pain, No Diarrhea, No Constipation, No Melena, No Hematochezia, No Other Genitourinary: No Dysuria, No Frequency, No Incontinence, No Hematuria, No Retention, No Other Musculoskeletal: No other, No neck pain, No shoulder pain, No arm pain, No back pain, No hand pain, No leg pain, No foot pain Skin: No Rash, No Lesions, No Jaundice, No Bruising, No Other Objective Vitals Vital Signs Date Time Temp Pulse Resp B/P (MAP) Pulse Ox O2 Delivery O2 Flow Rate FiO2 03/05/24 09:15 98.5 73 17 116/75 (89) 97 98.5 03/04/24 20:00 Nasal Cannula* 2 28 Intake/Output Intake and Output 03/05/24 06:59 Intake Total 1958 ml Output Total 1600 ml Balance 358 ml Intake Oral 1958 ml Output Urine Total 1600 ml # Voids 3 # Bowel Movements 1 Medications Current Medications Medications Dose Ordered Sig/Jana Route Start Time Stop Time Status Last Admin Dose Admin Furosemide 40 mg DAILY IV 03/04/24 10:00 03/04/24 10:31 40 MG Ondansetron HCl 4 mg Q4HP PRN IV 03/03/24 09:00 Acetaminophen 650 mg Q6HP PRN PO 03/03/24 09:00 03/03/24 15:39 650 MG Nitroglycerin 0.4 mg Q5MINP PRN SL 03/03/24 09:00 Morphine Sulfate 2 mg Q30M PRN IV 03/03/24 09:00 Carvedilol 12.5 mg Q12HR PO 03/03/24 22:45 03/04/24 21:18 12.5 MG Hydralazine HCl 10 mg Q6HP PRN IV 03/03/24 22:45 Mupirocin 1 applic BID EACHNOSTRI 03/04/24 22:00 03/09/24 21:59 03/04/24 21:18 1 APPLIC Laboratory Results Laboratory Tests 03/04/24 05:53 Microbiology Microbiology Date/Time Source Procedure Growth Status 03/04/24 05:25 Nose MRSA Screen - Final Methicillin Resistant S.aureus Complete Labs and/or images reviewed: Labs reviewed by me, Image(s) reviewed by me Assessment/Plan Assessment/Plan Acute On chronic systolic diastolic congestive heart failure drug-induced: Cardiology consult by Dr. Luther appreciated Morbid obesity Chronic severe aortic stenosis Chronic SVT CVA with left hemiplegia Chronic alcohol abuse Chronic meth abuse Chronic tobacco abuse Homelessness social service consult Time spent 55 minutes Patient is full code Advanced care planning time 20 minutes Plan discussed with: Patient My Orders Orders - WILFREDO KATZ MD Procedure Category Date Status Time * Cardiology Consult CONS 03/04/24 Transmitted 14:27 Mupirocin 2% Oint PHA 03/04/24 In Process Mrsa Nares (Bactroban 22:00 Date of Service: Mar 05, 2024 Billing Provider: WILFREDO KATZ MD Common Visit Codes: [id number] INP/OBS CARE(HIGH) WILFREDO KATZ MD Mar 05, 2024 11:58
[2024-03-05 13:00] VITALS: BP 112/80; PULSE 76; RESP 17; TEMP 98.4; O2SAT 94
--- NOTE | 2024-03-05 15:20 | ECG ---
[facility] Test Date: 2024-03-03 Test Time: 04:28:40 Pat Name: JASPREET VILLAVICENCIO Department: ER Room: 0279T B Gender: M Clinical Research Specialist: AISHA : 1964-10-27 Requested By: JESSICA FRASER Order Number: [id number] Reading MD: Glynn Bazan Measurements Intervals [place] Rate: 106 P: 39 IA: 133 QRS: 91 QRSD: 114 T: -7 QT: 380 QTc: 505 Interpretive Statements Sinus tachycardia Inferolateral infarct, old Prolonged QT interval Artifact in lead(s) I,II,III,aVR,aVL,aVF,V1,V4,V5,V6 Electronically Signed On 03-06-2024 13:04:24 PST by Glynn Bazan Please click the below link to view image of tracing.
[2024-03-05 17:18] VITALS: PULSE 72
[2024-03-05 21:00] VITALS: BP 110/79; PULSE 84; RESP 18; TEMP 98.3; O2SAT 97
--- NOTE | 2024-03-05 23:06 | DVHPN2 ---
Progress Note - Dictate Date Seen: Mar 05, 2024 Has the PT tested + for MRSA If YES, has PT been informed?: Yes Medical Necessity Reason Pt with a Central, PICC or Fol: No Subjective Patient was seen and evaluated in follow up. Patient is complaining of SOB. Patient is on 2 LPM NC. MRSA returned positive, started on Bactroban. vital signs Vital Sign Date Time Temp Pulse Resp B/P (MAP) Pulse Ox O2 Delivery O2 Flow Rate FiO2 03/05/24 22:00 84 110/79 03/05/24 21:00 98.3 18 97 98.3 03/05/24 17:18 Nasal Cannula* 2 28 Total Intake and Output 03/04/24 03/04/24 03/05/24 15:00 23:00 07:00 Intake Total 472 ml 1036 ml 450 ml Output Total 1600 ml Balance 472 ml -564 ml 450 ml medications Current Medications Medications Dose Ordered Sig/Jana Route Start Time Stop Time Status Last Admin Dose Admin Furosemide 40 mg DAILY IV 03/04/24 10:00 03/05/24 12:01 40 MG Ondansetron HCl 4 mg Q4HP PRN IV 03/03/24 09:00 Acetaminophen 650 mg Q6HP PRN PO 03/03/24 09:00 03/03/24 15:39 650 MG Nitroglycerin 0.4 mg Q5MINP PRN SL 03/03/24 09:00 Morphine Sulfate 2 mg Q30M PRN IV 03/03/24 09:00 Carvedilol 12.5 mg Q12HR PO 03/03/24 22:45 03/05/24 12:03 12.5 MG Hydralazine HCl 10 mg Q6HP PRN IV 03/03/24 22:45 Mupirocin 1 applic BID EACHNOSTRI 03/04/24 22:00 03/09/24 21:59 03/05/24 22:00 1 APPLIC objective General: Awake, alert,oriented. LUNGS: Diminished breath sounds. CARDIOVASCULAR: Heart sounds are good. ABDOMEN: Soft. laboratory and microbiology Laboratory Tests 03/04/24 05:53 Test 03/04/24 05:53 Range/Units Serum Glucose 144 H 74-106 mg/dL Problem List Acute on chronic systolic diastolic congestive heart failure drug-induced. Morbid obesity. Chronic severe aortic stenosis. Chronic SVT. CVA with left hemiplegia. Chronic alcohol abuse. Chronic meth abuse. Chronic tobacco abuse. Homelessness. Assessment/Plan Continued all current supportive medical care. Coreg. Diuretics with Lasix. Morphine for pain management. Nitro SL. Additional plan as per the hospital course Plan discussed with: Patient LILLIANA HURST MD Mar 05, 2024 23:06
[2024-03-06 01:00] VITALS: BP 112/75; PULSE 78; RESP 20; TEMP 98.2; O2SAT 96
[2024-03-06 05:00] VITALS: BP 127/93; PULSE 93; RESP 19; TEMP 97.9; O2SAT 96
[2024-03-06 08:00] VITALS: PULSE 74
[2024-03-06 09:02] VITALS: BP 114/78; PULSE 89; RESP 18; TEMP 97.5; O2SAT 95
--- NOTE | 2024-03-06 11:59 | DVHPN2 ---
Reviewed: Care Plan, H&P, Labs, Medications, Previous Orders, Radiology Changes from previous H/P or p: No Changes Eyes: No Pain, No Vision change, No Conjunctivae inflammation, No Eyelid inflammation, No Other, No Redness ENT: No Ear pain, No Ear discharge, No Nose pain, No Nose discharge, No Nose congestion, No Mouth pain, No Mouth swelling, No Throat pain, No Throat swelling, No Other Cardiovascular: No Chest Pain, No Palpitations, No Orthopnea, No Paroxysmal Noc. Dyspnea, No Edema, No Lt Headedness, No Other Respiratory: No Cough, No Dry; Shortness of breath; No SOB with excertion, No Wheezing, No Hemoptysis, No Pleuritic Pain, No Sputum, No Other Gastrointestinal: No Nausea, No Vomiting, No Abdominal Pain, No Diarrhea, No Constipation, No Melena, No Hematochezia, No Other Genitourinary: No Dysuria, No Frequency, No Incontinence, No Hematuria, No Retention, No Other Musculoskeletal: No other, No neck pain, No shoulder pain, No arm pain, No back pain, No hand pain, No leg pain, No foot pain Skin: No Rash, No Lesions, No Jaundice, No Bruising, No Other Objective Vitals Vital Signs Date Time Temp Pulse Resp B/P (MAP) Pulse Ox O2 Delivery O2 Flow Rate FiO2 03/06/24 09:25 89 114/78 03/06/24 09:02 97.5 18 95 97.5 03/05/24 17:18 Nasal Cannula* 2 28 Intake/Output Intake and Output 03/06/24 07:00 Intake Total 1000 ml Balance 1000 ml Intake Oral 1000 ml # Voids 8 # Bowel Movements 1 Medications Current Medications Medications Dose Ordered Sig/Jana Route Start Time Stop Time Status Last Admin Dose Admin Furosemide 40 mg DAILY IV 03/04/24 10:00 03/06/24 09:23 40 MG Ondansetron HCl 4 mg Q4HP PRN IV 03/03/24 09:00 Acetaminophen 650 mg Q6HP PRN PO 03/03/24 09:00 03/03/24 15:39 650 MG Nitroglycerin 0.4 mg Q5MINP PRN SL 03/03/24 09:00 Morphine Sulfate 2 mg Q30M PRN IV 03/03/24 09:00 Carvedilol 12.5 mg Q12HR PO 03/03/24 22:45 03/06/24 09:25 12.5 MG Hydralazine HCl 10 mg Q6HP PRN IV 03/03/24 22:45 Mupirocin 1 applic BID EACHNOSTRI 03/04/24 22:00 03/09/24 21:59 03/06/24 09:26 1 APPLIC Laboratory Results Laboratory Tests 03/04/24 05:53 Microbiology Microbiology Date/Time Source Procedure Growth Status 03/04/24 05:25 Nose MRSA Screen - Final Methicillin Resistant S.aureus Complete Labs and/or images reviewed: Labs reviewed by me, Image(s) reviewed by me Assessment/Plan Assessment/Plan Acute On chronic systolic diastolic congestive heart failure drug-induced: Cardiology consult by Dr. Luther appreciated Morbid obesity Chronic severe aortic stenosis Chronic SVT CVA with left hemiplegia Chronic alcohol abuse Chronic meth abuse Chronic tobacco abuse MRSA screen positive: Bactroban nasal ointment Per Pt , Patient is not homeless Time spent 55 minutes Patient is full code Advanced care planning time 20 minutes Plan discussed with: Patient Date of Service: Mar 06, 2024 Billing Provider: WILFREDO KATZ MD Common Visit Codes: [id number] INP/OBS CARE(HIGH) WILFREDO KATZ MD Mar 06, 2024 11:59
[2024-03-06 21:00] VITALS: BP 107/74; PULSE 87; RESP 20; TEMP 99.2; O2SAT 97
--- NOTE | 2024-03-06 23:47 | DVHPN2 ---
Progress Note - Dictate Date Seen: Mar 06, 2024 Has the PT tested + for MRSA If YES, has PT been informed?: Yes Medical Necessity Reason Pt with a Central, PICC or Fol: No Subjective Patient was seen and evaluated in follow up. No ovenright events. Patient is complaining of SOB, she is is on 2 LPM NC. Patient is diuresing with Lasix. vital signs Vital Sign Date Time Temp Pulse Resp B/P (MAP) Pulse Ox O2 Delivery O2 Flow Rate FiO2 03/06/24 22:45 87 107/74 03/06/24 21:00 99.2 20 97 99.2 03/06/24 20:00 Nasal Cannula* 2 28 Total Intake and Output 03/05/24 03/05/24 03/06/24 15:00 23:00 07:00 Intake Total 550 ml 450 ml Balance 550 ml 450 ml medications Current Medications Medications Dose Ordered Sig/Jana Route Start Time Stop Time Status Last Admin Dose Admin Furosemide 40 mg DAILY IV 03/04/24 10:00 03/06/24 09:23 40 MG Ondansetron HCl 4 mg Q4HP PRN IV 03/03/24 09:00 Acetaminophen 650 mg Q6HP PRN PO 03/03/24 09:00 03/06/24 22:41 650 MG Nitroglycerin 0.4 mg Q5MINP PRN SL 03/03/24 09:00 Morphine Sulfate 2 mg Q30M PRN IV 03/03/24 09:00 Carvedilol 12.5 mg Q12HR PO 03/03/24 22:45 03/06/24 22:45 12.5 MG Hydralazine HCl 10 mg Q6HP PRN IV 03/03/24 22:45 Mupirocin 1 applic BID EACHNOSTRI 03/04/24 22:00 03/09/24 21:59 03/06/24 22:44 1 APPLIC objective General: Awake, alert,oriented. LUNGS: Diminished breath sounds. CARDIOVASCULAR: Heart sounds are good. ABDOMEN: Soft. laboratory and microbiology Laboratory Tests 03/04/24 05:53 Test 03/04/24 05:53 Range/Units Serum Glucose 144 H 74-106 mg/dL Problem List Acute on chronic systolic diastolic congestive heart failure drug-induced. Morbid obesity. Chronic severe aortic stenosis. Chronic SVT. CVA with left hemiplegia. Chronic alcohol abuse. Chronic meth abuse. Chronic tobacco abuse. MRSA screen positive. Assessment/Plan Continued all current supportive medical care. Coreg. Diuretics with Lasix. Morphine for pain management. Nitro SL. Additional plan as per the hospital course Plan discussed with: Patient LILLIANA HURST MD Mar 06, 2024 23:47
[2024-03-07 01:00] VITALS: BP 104/71; PULSE 87; RESP 20; TEMP 98.2; O2SAT 95
[2024-03-07 05:00] VITALS: BP 118/83; PULSE 88; RESP 20; TEMP 98.1; O2SAT 96
[2024-03-07 08:00] VITALS: PULSE 86
--- NOTE | 2024-03-07 09:41 | DVHPN2 ---
Reviewed: Care Plan, H&P, Labs, Medications, Previous Orders, Radiology Changes from previous H/P or p: No Changes Eyes: No Pain, No Vision change, No Conjunctivae inflammation, No Eyelid inflammation, No Other, No Redness ENT: No Ear pain, No Ear discharge, No Nose pain, No Nose discharge, No Nose congestion, No Mouth pain, No Mouth swelling, No Throat pain, No Throat swelling, No Other Cardiovascular: No Chest Pain, No Palpitations, No Orthopnea, No Paroxysmal Noc. Dyspnea, No Edema, No Lt Headedness, No Other Respiratory: No Cough, No Dry; Shortness of breath; No SOB with excertion, No Wheezing, No Hemoptysis, No Pleuritic Pain, No Sputum, No Other Gastrointestinal: No Nausea, No Vomiting, No Abdominal Pain, No Diarrhea, No Constipation, No Melena, No Hematochezia, No Other Genitourinary: No Dysuria, No Frequency, No Incontinence, No Hematuria, No Retention, No Other Musculoskeletal: No other, No neck pain, No shoulder pain, No arm pain, No back pain, No hand pain, No leg pain, No foot pain Skin: No Rash, No Lesions, No Jaundice, No Bruising, No Other Objective Vitals Vital Signs Date Time Temp Pulse Resp B/P (MAP) Pulse Ox O2 Delivery O2 Flow Rate FiO2 03/07/24 09:30 108/72 03/07/24 09:29 88 03/07/24 05:00 98.1 20 96 98.1 03/06/24 20:00 Nasal Cannula* 2 28 Intake/Output Intake and Output 03/07/24 07:00 Intake Total 500 ml Output Total 900 ml Balance -400 ml Intake Oral 500 ml Output Urine Total 900 ml # Voids 4 Medications Current Medications Medications Dose Ordered Sig/Jana Route Start Time Stop Time Status Last Admin Dose Admin Furosemide 40 mg DAILY IV 03/04/24 10:00 03/07/24 09:30 40 MG Ondansetron HCl 4 mg Q4HP PRN IV 03/03/24 09:00 Acetaminophen 650 mg Q6HP PRN PO 03/03/24 09:00 03/06/24 22:41 650 MG Nitroglycerin 0.4 mg Q5MINP PRN SL 03/03/24 09:00 Morphine Sulfate 2 mg Q30M PRN IV 03/03/24 09:00 Carvedilol 12.5 mg Q12HR PO 03/03/24 22:45 03/07/24 09:29 12.5 MG Hydralazine HCl 10 mg Q6HP PRN IV 03/03/24 22:45 Mupirocin 1 applic BID EACHNOSTRI 03/04/24 22:00 03/09/24 21:59 03/07/24 09:30 1 APPLIC Laboratory Results Laboratory Tests 03/04/24 05:53 Microbiology Microbiology Date/Time Source Procedure Growth Status 03/04/24 05:25 Nose MRSA Screen - Final Methicillin Resistant S.aureus Complete Labs and/or images reviewed: Labs reviewed by me, Image(s) reviewed by me Assessment/Plan Assessment/Plan Acute On chronic systolic diastolic congestive heart failure drug-induced: Cardiology consult by Dr. Luther appreciated Morbid obesity Chronic severe aortic stenosis Chronic SVT CVA with left hemiplegia Chronic alcohol abuse Chronic meth abuse Chronic tobacco abuse MRSA screen positive: Bactroban nasal ointment Per Pt , Patient is not homeless Time spent 55 minutes Patient is full code Advanced care planning time 20 minutes Plan discussed with: Patient Date of Service: Mar 07, 2024 Billing Provider: WILFREDO KATZ MD Common Visit Codes: [id number] INP/OBS CARE(HIGH) WILFREDO KATZ MD Mar 07, 2024 09:41
[2024-03-07] MEDS ORDERED: POTA-36 PO (09:42)
[2024-03-07] MEDS ORDERED: CARV12.544 PO (09:42)
[2024-03-07] MEDS ORDERED: FURO1TAB31 PO (09:42)
--- NOTE | 2024-03-07 09:47 | DVHDS2 ---
Discharge Summary Date of Admission Mar 03, 2024 at 08:50 Date of Discharge: Mar 07, 2024 Admitting Diagnosis Shortness of breath Wounds: None Labs/Diagnostic Data: Laboratory Results Test 03/04/24 05:53 03/03/24 06:25 03/03/24 05:35 03/03/24 05:12 White Blood Count 5.3 10^3/uL (4.4-10.8) Red Blood Count 4.23 10^6/uL (4.5-5.90) Hemoglobin 14.1 g/dL (13.5-17.5) Hematocrit 41.3 % (41.0-53.0) Mean Corpuscular Volume 97.8 fL (80.0-100.0) Mean Corpuscular Hemoglobin 33.3 pg (28.0-32.0) Mean Corpuscular Hemoglobin Concent 34.0 g/dL (32.0-36.0) Red Cell Distribution Width 13.7 % (11.8-14.3) Platelet Count 243 10^3/uL (140-450) Mean Platelet Volume 7.2 fL (6.9-10.8) Neutrophils (%) (Auto) 61.7 % (37.0-80.0) Lymphocytes (%) (Auto) 22.5 % (10.0-50.0) Monocytes (%) (Auto) 7.2 % (0.0-12.0) Eosinophils (%) (Auto) 7.4 % (0.0-7.0) Basophils (%) (Auto) 1.2 % (0.0-2.0) Neutrophils # (Auto) 3.3 10 ^3/uL (1.6-8.6) Lymphocytes # (Auto) 1.2 10 ^3/uL (0.4-5.4) Monocytes # (Auto) 0.4 10 ^3/uL (0-1.3) Eosinophils # (Auto) 0.4 10 ^3/uL (0-0.8) Basophils # (Auto) 0.1 10 ^3/uL (0-0.2) Nucleated Red Blood Cells 0.2 % Sodium Level 141 mmol/L (136-145) Potassium Level 3.7 mmol/L (3.5-5.1) Chloride Level 107 mmol/L (98-107) Carbon Dioxide Level 28 mmol/L (20-31) Anion Gap 6 (5-15) Blood Urea Nitrogen 12 mg/dL (9-23) Creatinine 0.75 mg/dL (0.700-1.30) Glomerular Filtration Rate Calc 105 mL/min (>90) BUN/Creatinine Ratio 16.0 (10.0-20.0) Serum Glucose 144 mg/dL (74-106) Calcium Level 9.2 mg/dL (8.7-10.4) Total Bilirubin 0.8 mg/dL (0.2-1.0) Aspartate Amino Transferase (AST) 38 U/L (13-40) Alanine Aminotransferase (ALT) 30 U/L (7-40) Alkaline Phosphatase 99 U/L (46-116) Total Protein 6.7 g/dL (5.7-8.2) Albumin 3.6 g/dL (3.2-4.8) Troponin I High Sensitivity 53 ng/L (</=54) Thyroid Stimulating Hormone (TSH) 0.95 uIU/mL (0.55-4.78) Urine Opiates Screen Neg (NEGATIVE) Urine Fentanyl Screen Neg (NEGATIVE) Urine Barbiturates Screen Neg (NEGATIVE) Urine Phencyclidine Screen Neg (NEGATIVE) Urine Amphetamines Screen Neg (NEGATIVE) Urine Benzodiazepines Screen Neg (NEGATIVE) Urine Cocaine Screen Neg (NEGATIVE) Urine Cannabinoids Screen Neg (NEGATIVE) B-Type Natriuretic Peptide 248.39 pg/mL (0-100) Other Laboratory Tests 03/04/24 05:53 Brief Hx & Hospital Course: 3-year-old male with a history of alcohol abuse methamphetamine abuse chronic current smoker medication noncompliant history of CVA with left hemiplegia SVT severe aortic stenosis morbid obesity came in complaining of shortness of breaths. Patient was found to have exacerbation of systolic and diastolic congestive heart failure drug-induced. 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 Luther placed on Lasix and Coreg marginally improved MRSA screen positive treated with the Bactroban nasal ointment at the time of discharge his vital signs are stable on room air discharged home prescription for Lasix potassium and carvedilol transmitted to the pharmacy. He was strongly advised to quit smoking , quit using alcohol and stop using methamphetamine. He will follow up with [facility] in one week Consults/Reason for consult Cardiology Dr. Bridget Luther Operations or Procedures None Condition at Discharge: Fair Final Diagnosis/Problems List Acute On chronic systolic diastolic congestive heart failure drug-induced: Cardiology consult by Dr. Luther appreciated Morbid obesity Chronic severe aortic stenosis Chronic SVT CVA with left hemiplegia Chronic alcohol abuse Chronic meth abuse Chronic tobacco abuse MRSA screen positive: Bactroban nasal ointment Discharge Disposition: Home Discharge Instruct/Medications Diet: Cardiac 2g Na,low cholest Activity: Light activity Follow Up/Referral: Stop smoking cigarettes Stop using alcohol Stop using methamphetamine Resume all previous home medications Follow up with the discharge clinic in one week Medications: Lasix Potassium Carvedilol Sent to the pharmacy 39 (Time Taken for discharge summary 39 minutes) Discharge Statement: "Patient was advised to return to the ER or call 911 if any headaches, dizziness, shortness of breath, chest pain, abdominal pain, bleeding, fevers, or worsening of medical condition. Patient was counseled about treatment plan, medications, possible side effects, patientverbalized understanding. All questions were answered to the best of my ability. This discharge took greater then 30 minutes in planning, reviewing documentation, counseling the patient, and discussing with other team members." ASSESSMENT ASSESSMENT Hospital Course Marginally improved Assessment Acute On chronic systolic diastolic congestive heart failure drug-induced: Cardiology consult by Dr. Luther appreciated Morbid obesity Chronic severe aortic stenosis Chronic SVT CVA with left hemiplegia Chronic alcohol abuse Chronic meth abuse Chronic tobacco abuse MRSA screen positive: Bactroban nasal ointment Date of Service: Mar 07, 2024 Billing Provider: WILFREDO KATZ MD Common Visit Codes: 89039-PUQ/OBS DISCH DAY >30min WILFREDO KATZ MD Mar 07, 2024 09:47
[2024-03-07 11:12] VITALS: BP 98/67; PULSE 80; RESP 18; TEMP 98.3; O2SAT 93
--- NOTE | 2024-03-07 13:37 | DVHPN2 ---
Progress Note - Dictate Date Seen: Mar 07, 2024 Has the PT tested + for MRSA If YES, has PT been informed?: Yes Medical Necessity Reason Pt with a Central, PICC or Fol: No Subjective Patient was seen and evaluated in follow up. Patient has no new complaints at this time. Patient denies any cardiac symptoms. Patient is cardiac stable for discharge. vital signs Vital Sign Date Time Temp Pulse Resp B/P (MAP) Pulse Ox O2 Delivery O2 Flow Rate FiO2 03/07/24 11:12 98.3 80 18 93 03/07/24 10:29 98/67 03/06/24 20:00 Nasal Cannula* 2 28 Total Intake and Output 03/06/24 03/06/24 03/07/24 15:00 23:00 07:00 Intake Total 500 ml Output Total 900 ml Balance -400 ml medications Current Medications Medications Dose Ordered Sig/Jana Route Start Time Stop Time Status Last Admin Dose Admin Furosemide 40 mg DAILY IV 03/04/24 10:00 03/07/24 09:30 40 MG Ondansetron HCl 4 mg Q4HP PRN IV 03/03/24 09:00 Acetaminophen 650 mg Q6HP PRN PO 03/03/24 09:00 03/06/24 22:41 650 MG Nitroglycerin 0.4 mg Q5MINP PRN SL 03/03/24 09:00 Morphine Sulfate 2 mg Q30M PRN IV 03/03/24 09:00 Carvedilol 12.5 mg Q12HR PO 03/03/24 22:45 03/07/24 09:29 12.5 MG Hydralazine HCl 10 mg Q6HP PRN IV 03/03/24 22:45 Mupirocin 1 applic BID EACHNOSTRI 03/04/24 22:00 03/09/24 21:59 03/07/24 09:30 1 APPLIC objective General: Awake, alert,oriented. LUNGS: Diminished breath sounds. CARDIOVASCULAR: Heart sounds are good. ABDOMEN: Soft. laboratory and microbiology Laboratory Tests 03/04/24 05:53 Test 03/04/24 05:53 Range/Units Serum Glucose 144 H 74-106 mg/dL Problem List Acute on chronic systolic diastolic congestive heart failure drug-induced. Morbid obesity. Chronic severe aortic stenosis. Chronic SVT. CVA with left hemiplegia. Chronic alcohol abuse. Chronic meth abuse. Chronic tobacco abuse. MRSA screen positive. Assessment/Plan Continued all current supportive medical care. Coreg. Diuretics with Lasix. Morphine for pain management. Nitro SL. Additional plan as per the hospital course Plan discussed with: Patient LILLIANA HURST MD Mar 07, 2024 13:16
== END 2024-03-07 12:50 | disposition home or self-care (01) | DRG 194 ==
LOC: EDBD 04:20 → ER 04:20 → TELE 08:50 → TELE-WESTW 20:04
PROVIDERS: ATTEND Family Medicine
DX: I11.0 Hypertensive heart disease with heart failure (principal); I47.10 Supraventricular tachycardia, unspecified; I50.43 Acute on chronic combined systolic (congestive) and diastolic (congestive) heart failure; I35.0 Nonrheumatic aortic (valve) stenosis; E66.01 Morbid (severe) obesity due to excess calories; F10.10 Alcohol abuse, uncomplicated; M10.9 Gout, unspecified; F17.210 Nicotine dependence, cigarettes, uncomplicated; Y90.9 Presence of alcohol in blood, level not specified; F15.10 Other stimulant abuse, uncomplicated; Z59.00 Homelessness unspecified; I69.354 Hemiplegia and hemiparesis following cerebral infarction affecting left non-dominant side; Z91.148 Patient's other noncompliance with medication regimen for other reason; Z79.899 Other long term (current) drug therapy
CPT/HCPCS: 36415; 71045; 80053; 80307; 83880; 84443; 84484; 85025; 87081; 93005; 99291; G0378